=== PATIENT | male | born 1960 | race African-American/Black ===

== ENCOUNTER 2016-09-05 21:19 | Inpatient (IN) | payer MEDICAID ==
[~2016-09-05] VITALS: Ht 165.1 cm; Wt 71.0 kg
[~2016-09-05 21:19] MED LIST: ESCI5TAB PO; QUET200T PO
[2016-09-05 22:10] VITALS: BP 130/70
[2016-09-05] MEDS ORDERED: ZOLPIDEM TARTRATE 10 MG TABLET PO PRN (22:15)
[2016-09-05] MEDS ORDERED: LEVO250 PO (22:30)
[2016-09-05] MEDS ORDERED: INFLUENZA VIRUS VACCINE QVS 2016-17 (3YR+)/PF 60 MCG/0.5 ML SYRINGE IM ONE (23:15)
[2016-09-05] MEDS ORDERED: PNEUMOCOCCAL VACCINE POLYVALENT 0.5 ML VIAL [PPSV23] IM ONE (23:15)
[2016-09-06 00:40] VITALS: BP 107/75
[2016-09-06 07:22] LABS: BASOPHILS % (AUTO) 0.2 % (0.0-2.0); EOSINOPHILS % (AUTO) 5.9 % (1.0-6.0); HEMATOCRIT 41.5 % (41-53); HEMOGLOBIN 13.7 g/dL (13.5-17.5); LYMPHOCYTES # (AUTO) 1.4 K/uL (1.0-4.8); LYMPHOCYTES % (AUTO) 17.5 % (22.0-44.0); MEAN CORPUSCULAR HEMOGLOBIN 29.8 pg (26.0-34.0); MEAN CORPUSCULAR VOLUME 90 fL (80-100); MONOCYTES # (AUTO) 0.4 K/uL (0.1-1.0); MONOCYTES % (AUTO) 5.5 % (2.0-9.0); NEUTROPHILS # (AUTO) 5.5 K/uL (1.8-7.7); NEUTROPHILS % (AUTO) 70.9 % (40.0-70.0); PLATELET COUNT (AUTO) 368 K/uL (150-450); RED CELL DISTRIBUTION WIDTH 14.4 % (11.5-14.5); WHITE BLOOD COUNT (AUTO) 7.8 K/uL (4.5-11.0)
[2016-09-06 07:41] LABS: ALANINE AMINOTRANSFERASE 26 U/L (12-78); ALBUMIN 2.7 g/dL (3.4-5.0); ANION GAP 6 mmol/L (8-16); ASPARTATE AMINOTRANSFERASE 20 U/L (15-37); BILIRUBIN,TOTAL 0.2 mg/dL (0.1-1.0); CALCIUM, TOTAL 8.8 mg/dL (8.8-10.5); CARBON DIOXIDE 29 mmol/L (22-29); CHLORIDE 106 mmol/L (98-107); CREATININE 1.12 mg/dL (0.60-1.30); GLOMERULAR FILTR. RATE CALC > 60 mL/min (>60); POTASSIUM 4.9 mmol/L (3.5-5.1); SODIUM SERUM 141 mmol/L (136-145); TOTAL PROTEIN, SERUM 6.4 g/dL (6.4-8.2); UREA NITROGEN, BLOOD 21 mg/dL (7-18)
[2016-09-06] MEDS: FLUoxetine HCL 20 MG CAPSULE PO SCH (09:00)
[2016-09-06] MEDS: QUEtiapine FUMARATE 200 MG TABLET PO SCH ×2 (09:30→21:21)
[2016-09-06 11:26] VITALS: BP 121/78
[2016-09-06 16:00] VITALS: BP 136/90
[2016-09-06] MEDS: LORazepam 2 MG TABLET PO PRN (16:28)
[2016-09-06] MEDS: TIOTROPIUM BROMIDE 18 MCG/INH HANDIHALER [5] IH SCH (23:00)
[2016-09-06] MEDS: LEVOFLOXACIN 250 MG TABLET PO SCH (23:00)
[2016-09-07 05:27] VITALS: BP 134/84
[2016-09-07 08:51] VITALS: BP 143/89
[2016-09-07] MEDS: QUEtiapine FUMARATE 200 MG TABLET PO SCH ×2 (09:16→20:22)
[2016-09-07] MEDS: FLUoxetine HCL 20 MG CAPSULE PO SCH (09:16)
[2016-09-07] MEDS: LEVOFLOXACIN 250 MG TABLET PO SCH (09:17)
[2016-09-07] MEDS: TIOTROPIUM BROMIDE 18 MCG/INH HANDIHALER [5] IH SCH (09:17)
[2016-09-07 16:49] VITALS: BP 121/74
[2016-09-08 05:10] VITALS: BP 137/54
[2016-09-08 09:21] VITALS: BP 125/77
[2016-09-08] MEDS: TIOTROPIUM BROMIDE 18 MCG/INH HANDIHALER [5] IH SCH (09:24)
[2016-09-08] MEDS: QUEtiapine FUMARATE 200 MG TABLET PO SCH ×2 (09:27→21:06)
[2016-09-08] MEDS: FLUoxetine HCL 20 MG CAPSULE PO SCH (09:27)
[2016-09-08] MEDS: LEVOFLOXACIN 250 MG TABLET PO SCH (09:27)
[2016-09-08] MEDS: LORazepam 2 MG TABLET PO PRN ×2 (09:28→23:09)
[2016-09-08 18:15] VITALS: BP 125/78
[2016-09-09 05:35] VITALS: BP 110/66
[2016-09-09 09:24] VITALS: BP 105/70
[2016-09-09] MEDS: FLUoxetine HCL 20 MG CAPSULE PO SCH (09:46)
[2016-09-09] MEDS: QUEtiapine FUMARATE 200 MG TABLET PO SCH (09:46)
[2016-09-09] MEDS: LEVOFLOXACIN 250 MG TABLET PO SCH (09:46)
[2016-09-09] MEDS: TIOTROPIUM BROMIDE 18 MCG/INH HANDIHALER [5] IH SCH (09:46)
[2016-09-09] MEDS: LORazepam 2 MG TABLET PO PRN (09:46)
[2016-09-09] MEDS ORDERED: FLUO-191 PO (10:22)
[2016-09-09] MEDS ORDERED: TIOT185 IH (10:24)
== END 2016-09-09 14:40 | disposition home or self-care (01) | DRG 750 ==
LOC: UNDOADMIN 22:32 → 3EI 22:32 → B3A 22:32 → EDSTATUS 22:55
PROVIDERS: ADMIT Psychiatry & Neurology Psychiatry; ATTEND Psychiatry & Neurology Psychiatry
DX: F25.9 Schizoaffective disorder, unspecified (principal); J18.9 Pneumonia, unspecified organism; R45.851 Suicidal ideations; F20.0 Paranoid schizophrenia; E78.5 Hyperlipidemia, unspecified; I10 Essential (primary) hypertension; F14.90 Cocaine use, unspecified, uncomplicated; G47.00 Insomnia, unspecified; M54.5 Low back pain; F32.9 Major depressive disorder, single episode, unspecified; Z80.1 Family history of malignant neoplasm of trachea, bronchus and lung
CPT/HCPCS: 71020; 87081

== ENCOUNTER 2016-09-12 02:52 | Inpatient (IN) | payer MEDICAID ==
[~2016-09-12] VITALS: Ht 165.1 cm; Wt 71.7 kg
[~2016-09-12 02:52] MED LIST changes: -ESCI5TAB PO; +FLUO-191 PO; +LEVO250 PO; +TIOT185 IH
[2016-09-12] MEDS ORDERED: ZOLPIDEM TARTRATE 10 MG TABLET PO PRN (04:30)
[2016-09-12] MEDS ORDERED: INFLUENZA VIRUS VACCINE QVS 2016-17 (3YR+)/PF 60 MCG/0.5 ML SYRINGE IM ONE (04:45)
[2016-09-12] MEDS ORDERED: HYDR-309 PO (04:54)
[2016-09-12] MEDS ORDERED: QUET200T PO (04:54)
[2016-09-12 05:39] VITALS: BP 118/78
[2016-09-12] MEDS ORDERED: PNEUMOCOCCAL VACCINE POLYVALENT 0.5 ML VIAL [PPSV23] IM ONE (06:00)
[2016-09-12 08:25] VITALS: BP 122/82
[2016-09-12] MEDS ORDERED: CloNIDine HCL 0.1 MG TABLET PO PRN (11:30)
[2016-09-12] MEDS ORDERED: LOPERAMIDE HCL 2 MG CAPSULE PO PRN (11:30)
[2016-09-12] MEDS ORDERED: ALBUTEROL SULFATE HFA 90 MCG/PUFF 8 GM INHALER IH PRN (11:30)
[2016-09-12] MEDS ORDERED: IBUPROFEN 600 MG TABLET PO PRN (11:30)
[2016-09-12] MEDS ORDERED: MAGNESIUM HYDROXIDE SUSPENSION 30 ML UDCUP PO PRN (11:30)
[2016-09-12] MEDS ORDERED: BACITRACIN 28.4 GM OINTMENT TP PRN (11:30)
[2016-09-12] MEDS ORDERED: BENZOCAINE/MENTHOL LOZENGE MM PRN (11:30)
[2016-09-12] MEDS ORDERED: MAG HYDROX/AL HYDROX/SIMETH ES 30 ML SUSPENSION UDCUP PO PRN (11:30)
[2016-09-12] MEDS ORDERED: PETROLATUM,WHITE 71 GM JELLY TP PRN (11:30)
[2016-09-12] MEDS ORDERED: ONDANSETRON HCL 4 MG TABLET PO PRN (11:30)
[2016-09-12] MEDS ORDERED: ACETAMINOPHEN 325 MG TABLET PO PRN (11:30)
[2016-09-12] MEDS ORDERED: GuaiFENesin/D-METHORPHAN/PHENYLEPH 5 ML LIQUID ORAL.SYG PO PRN (11:30)
[2016-09-12] MEDS: NICOTINE 14 MG/24 HOUR PATCH TD SCH (12:44)
[2016-09-12] MEDS: FLUoxetine HCL 20 MG CAPSULE PO SCH (12:44)
[2016-09-12] MEDS: LEVOFLOXACIN 250 MG TABLET PO SCH (15:49)
[2016-09-12] MEDS: TIOTROPIUM BROMIDE 18 MCG/INH HANDIHALER [5] IH SCH (15:49)
[2016-09-12 16:14] VITALS: BP 126/79
[2016-09-12] MEDS: QUEtiapine FUMARATE 200 MG TABLET PO SCH (20:10)
[2016-09-13 06:28] VITALS: BP 143/87
[2016-09-13] MEDS: LORazepam 2 MG TABLET PO PRN ×2 (06:31→17:05)
[2016-09-13 07:40] LABS: BASOPHILS % (AUTO) 2.4 % (0.0-2.0); EOSINOPHILS % (AUTO) 6.5 % (1.0-6.0); HEMOGLOBIN 12.9 g/dL (13.5-17.5); LYMPHOCYTES # (AUTO) 1.2 K/uL (1.0-4.8); LYMPHOCYTES % (AUTO) 28.2 % (22.0-44.0); MEAN CORPUSCULAR HEMOGLOBIN 29.5 pg (26.0-34.0); MEAN CORPUSCULAR VOLUME 90 fL (80-100); MONOCYTES # (AUTO) 0.5 K/uL (0.1-1.0); MONOCYTES % (AUTO) 11.7 % (2.0-9.0); NEUTROPHILS # (AUTO) 2.1 K/uL (1.8-7.7); NEUTROPHILS % (AUTO) 51.2 % (40.0-70.0); PLATELET COUNT (AUTO) 385 K/uL (150-450); RED BLOOD CELL COUNT(AUTO) 4.36 MIL/uL (4.50-5.90); RED CELL DISTRIBUTION WIDTH 14.2 % (11.5-14.5); WHITE BLOOD COUNT (AUTO) 4.2 K/uL (4.5-11.0)
[2016-09-13 08:09] LABS: HEMOGLOBIN A1C 5.8 % (4.5-6.2)
[2016-09-13 08:12] LABS: ALANINE AMINOTRANSFERASE 30 U/L (12-78); ALBUMIN 2.8 g/dL (3.4-5.0); ANION GAP 8 mmol/L (8-16); ASPARTATE AMINOTRANSFERASE 21 U/L (15-37); BILIRUBIN,TOTAL 0.2 mg/dL (0.1-1.0); CALCIUM, TOTAL 8.7 mg/dL (8.8-10.5); CARBON DIOXIDE 29 mmol/L (22-29); CHLORIDE 103 mmol/L (98-107); CREATININE 1.22 mg/dL (0.60-1.30); GLOMERULAR FILTR. RATE CALC > 60 mL/min (>60); POTASSIUM 4.7 mmol/L (3.5-5.1); SODIUM SERUM 140 mmol/L (136-145); THYROID STIMULATING HORMONE 1.41 uIU/mL (0.36-3.74); TOTAL PROTEIN, SERUM 6.1 g/dL (6.4-8.2); UREA NITROGEN, BLOOD 19 mg/dL (7-18)
[2016-09-13 08:29] VITALS: BP 132/64
[2016-09-13] MEDS: TIOTROPIUM BROMIDE 18 MCG/INH HANDIHALER [5] IH SCH (08:47)
[2016-09-13] MEDS: FLUoxetine HCL 20 MG CAPSULE PO SCH (08:48)
[2016-09-13] MEDS: NICOTINE 14 MG/24 HOUR PATCH TD SCH (08:48)
[2016-09-13] MEDS: QUEtiapine FUMARATE 200 MG TABLET PO SCH ×2 (08:48→20:50)
[2016-09-13] MEDS: LEVOFLOXACIN 250 MG TABLET PO SCH (08:48)
[2016-09-13 16:04] VITALS: BP 105/60
[2016-09-14 07:15] VITALS: BP 102/61
[2016-09-14 08:41] VITALS: BP 117/71
[2016-09-14] MEDS: LORazepam 2 MG TABLET PO PRN (09:32)
[2016-09-14] MEDS: TIOTROPIUM BROMIDE 18 MCG/INH HANDIHALER [5] IH SCH (09:33)
[2016-09-14] MEDS: NICOTINE 14 MG/24 HOUR PATCH TD SCH (09:33)
[2016-09-14] MEDS: LEVOFLOXACIN 250 MG TABLET PO SCH (09:33)
[2016-09-14] MEDS: FLUoxetine HCL 20 MG CAPSULE PO SCH (09:34)
[2016-09-14] MEDS: QUEtiapine FUMARATE 200 MG TABLET PO SCH ×2 (09:34→20:47)
[2016-09-14 16:14] VITALS: BP 109/71
[2016-09-15 04:14] VITALS: BP 104/67
[2016-09-15 08:32] VITALS: BP 124/85
[2016-09-15] MEDS: LEVOFLOXACIN 250 MG TABLET PO SCH (08:37)
[2016-09-15] MEDS: TIOTROPIUM BROMIDE 18 MCG/INH HANDIHALER [5] IH SCH (08:37)
[2016-09-15] MEDS: FLUoxetine HCL 20 MG CAPSULE PO SCH (08:38)
[2016-09-15] MEDS: QUEtiapine FUMARATE 200 MG TABLET PO SCH ×2 (08:38→20:24)
[2016-09-15] MEDS: NICOTINE 14 MG/24 HOUR PATCH TD SCH (08:38)
[2016-09-15 16:08] VITALS: BP 108/71
[2016-09-16 00:23] VITALS: BP 105/68
[2016-09-16 08:05] VITALS: BP 101/61
[2016-09-16] MEDS ORDERED: NICOTINE 21 MG/24 HOUR PATCH TD SCH (09:00)
[2016-09-16] MEDS: TIOTROPIUM BROMIDE 18 MCG/INH HANDIHALER [5] IH SCH (10:01)
[2016-09-16] MEDS: LEVOFLOXACIN 250 MG TABLET PO SCH (10:01)
[2016-09-16] MEDS: FLUoxetine HCL 20 MG CAPSULE PO SCH (10:02)
[2016-09-16] MEDS: QUEtiapine FUMARATE 200 MG TABLET PO SCH (10:02)
[2016-09-16] MEDS ORDERED: NICO21T TD (10:36)
== END 2016-09-16 12:30 | disposition home or self-care (01) | DRG 750 ==
LOC: B2S 04:26 → EDSTATUS 04:29
PROVIDERS: ADMIT Psychiatry & Neurology Psychiatry; ATTEND Psychiatry & Neurology Psychiatry
PROC: 3E0234Z Introduction of Serum, Toxoid and Vaccine into Muscle, Percutaneous Approach (ICD-10-PCS; principal; 2016-09-12)
DX: F25.9 Schizoaffective disorder, unspecified (principal); R45.851 Suicidal ideations; E55.9 Vitamin D deficiency, unspecified; I10 Essential (primary) hypertension; J44.9 Chronic obstructive pulmonary disease, unspecified; E78.5 Hyperlipidemia, unspecified; G56.00 Carpal tunnel syndrome, unspecified upper limb; M54.5 Low back pain; F17.200 Nicotine dependence, unspecified, uncomplicated; F14.90 Cocaine use, unspecified, uncomplicated; Z23 Encounter for immunization; Z88.1 Allergy status to other antibiotic agents; Z71.51 Drug abuse counseling and surveillance of drug abuser; Z71.6 Tobacco abuse counseling; Z80.1 Family history of malignant neoplasm of trachea, bronchus and lung
CPT/HCPCS: 83036; 84439; 84443; 87081; 90471

== ENCOUNTER 2016-10-16 21:30 | Inpatient (IN) | payer MEDICAID ==
[~2016-10-16] VITALS: Ht 170.2 cm; Wt 81.7 kg
[~2016-10-16 21:30] MED LIST changes: +NICO21T TD
[2016-10-16 22:00] VITALS: BP 121/81
[2016-10-16] MEDS ORDERED: HALOPERIDOL 5 MG TABLET PO PRN (22:00)
[2016-10-16] MEDS ORDERED: ZOLPIDEM TARTRATE 10 MG TABLET PO PRN (22:00)
[2016-10-16] MEDS ORDERED: -PHARMACY VACCINE NOTE- MISC ONE ×2 (22:15)
[2016-10-17 00:02] VITALS: BP 118/79
[2016-10-17 08:08] VITALS: BP 128/67
[2016-10-17 08:23] LABS: BASOPHILS % (AUTO) 0.4 % (0.0-2.0); EOSINOPHILS % (AUTO) 6.4 % (1.0-6.0); HEMATOCRIT 39.4 % (41-53); HEMOGLOBIN 12.9 g/dL (13.5-17.5); LYMPHOCYTES # (AUTO) 1.8 K/uL (1.0-4.8); LYMPHOCYTES % (AUTO) 24.8 % (22.0-44.0); MEAN CORPUSCULAR HGB CONC 32.6 G/dL (31.0-37.0); MEAN CORPUSCULAR VOLUME 89 fL (80-100); MONOCYTES # (AUTO) 0.7 K/uL (0.1-1.0); MONOCYTES % (AUTO) 10.2 % (2.0-9.0); NEUTROPHILS # (AUTO) 4.2 K/uL (1.8-7.7); NEUTROPHILS % (AUTO) 58.2 % (40.0-70.0); PLATELET COUNT (AUTO) 288 K/uL (150-450); RED BLOOD CELL COUNT(AUTO) 4.43 MIL/uL (4.50-5.90); WHITE BLOOD COUNT (AUTO) 7.2 K/uL (4.5-11.0)
[2016-10-17 08:36] LABS: HEMOGLOBIN A1C 6.4 % (4.5-6.2)
[2016-10-17 08:58] LABS: ALANINE AMINOTRANSFERASE 29 U/L (12-78); ALBUMIN 3.7 g/dL (3.4-5.0); ANION GAP 9 mmol/L (8-16); ASPARTATE AMINOTRANSFERASE 27 U/L (15-37); BILIRUBIN,TOTAL 0.5 mg/dL (0.1-1.0); CALCIUM, TOTAL 8.7 mg/dL (8.8-10.5); CARBON DIOXIDE 29 mmol/L (22-29); CHLORIDE 101 mmol/L (98-107); CHOL/HDL RATIO 9.3 (4.2-7.3); CREATININE 1.16 mg/dL (0.60-1.30); GLOMERULAR FILTR. RATE CALC > 60 mL/min (>60); POTASSIUM 4.8 mmol/L (3.5-5.1); SODIUM SERUM 139 mmol/L (136-145); THYROID STIMULATING HORMONE 2.28 uIU/mL (0.36-3.74); UREA NITROGEN, BLOOD 19 mg/dL (7-18)
[2016-10-17] MEDS ORDERED: ONDANSETRON HCL 4 MG TABLET PO PRN (15:00)
[2016-10-17] MEDS ORDERED: LOPERAMIDE HCL 2 MG CAPSULE PO PRN (15:00)
[2016-10-17] MEDS ORDERED: ACETAMINOPHEN 325 MG TABLET PO PRN (15:00)
[2016-10-17] MEDS ORDERED: IBUPROFEN 600 MG TABLET PO PRN (15:00)
[2016-10-17] MEDS ORDERED: PETROLATUM,WHITE 71 GM JELLY TP PRN (15:00)
[2016-10-17] MEDS ORDERED: MAG HYDROX/AL HYDROX/SIMETH ES 30 ML SUSPENSION UDCUP PO PRN (15:00)
[2016-10-17] MEDS ORDERED: MAGNESIUM HYDROXIDE SUSPENSION 30 ML UDCUP PO PRN (15:00)
[2016-10-17] MEDS ORDERED: ALBUTEROL SULFATE HFA 90 MCG/PUFF 8 GM INHALER IH PRN (15:00)
[2016-10-17] MEDS ORDERED: CloNIDine HCL 0.1 MG TABLET PO PRN (15:00)
[2016-10-17] MEDS ORDERED: BACITRACIN 28.4 GM OINTMENT TP PRN (15:00)
[2016-10-17] MEDS ORDERED: BENZOCAINE/MENTHOL LOZENGE MM PRN (15:00)
[2016-10-17 16:00] VITALS: BP 134/82
[2016-10-17] MEDS: QUEtiapine FUMARATE 300 MG TABLET PO SCH (20:47)
[2016-10-18 06:43] VITALS: BP 123/65
[2016-10-18 08:20] VITALS: BP 124/68
[2016-10-18] MEDS: FISH OIL/OMEGA-3 FATTY ACIDS 500 MG CAPSULE PO SCH (08:42)
[2016-10-18] MEDS: CHOLECALCIFEROL (VIT D3) 1,000 UNITS TABLET PO SCH (08:42)
[2016-10-18] MEDS: ESCITALOPRAM OXALATE 20 MG TABLET PO SCH (08:42)
[2016-10-18] MEDS: QUEtiapine FUMARATE 200 MG TABLET PO SCH (08:42)
[2016-10-18] MEDS: NICOTINE 21 MG/24 HOUR PATCH TD SCH (08:43)
[2016-10-18 16:00] VITALS: BP 138/78
[2016-10-18] MEDS: QUEtiapine FUMARATE 300 MG TABLET PO SCH (20:15)
[2016-10-19 06:03] VITALS: BP 132/72
[2016-10-19 08:30] VITALS: BP 125/62
[2016-10-19] MEDS: CHOLECALCIFEROL (VIT D3) 1,000 UNITS TABLET PO SCH (09:30)
[2016-10-19] MEDS: ESCITALOPRAM OXALATE 20 MG TABLET PO SCH (09:30)
[2016-10-19] MEDS: NICOTINE 21 MG/24 HOUR PATCH TD SCH (09:31)
[2016-10-19] MEDS: QUEtiapine FUMARATE 200 MG TABLET PO SCH (09:31)
[2016-10-19] MEDS: FISH OIL/OMEGA-3 FATTY ACIDS 500 MG CAPSULE PO SCH (09:31)
[2016-10-19] MEDS: LORazepam 2 MG TABLET PO PRN ×2 (10:12→17:01)
[2016-10-19 16:13] VITALS: BP 130/76
[2016-10-19] MEDS: QUEtiapine FUMARATE 300 MG TABLET PO SCH (21:29)
[2016-10-20 06:31] VITALS: BP 136/75
[2016-10-20] MEDS: FISH OIL/OMEGA-3 FATTY ACIDS 500 MG CAPSULE PO SCH (08:57)
[2016-10-20] MEDS: CHOLECALCIFEROL (VIT D3) 1,000 UNITS TABLET PO SCH (08:57)
[2016-10-20] MEDS: NICOTINE 21 MG/24 HOUR PATCH TD SCH (08:57)
[2016-10-20] MEDS: QUEtiapine FUMARATE 200 MG TABLET PO SCH (08:57)
[2016-10-20] MEDS: ESCITALOPRAM OXALATE 20 MG TABLET PO SCH (08:58)
[2016-10-20 09:38] VITALS: BP 145/85
[2016-10-20 16:30] VITALS: BP 135/82
[2016-10-20] MEDS: QUEtiapine FUMARATE 300 MG TABLET PO SCH (21:58)
[2016-10-21 03:04] VITALS: BP 132/78
[2016-10-21] MEDS: FISH OIL/OMEGA-3 FATTY ACIDS 500 MG CAPSULE PO SCH (08:30)
[2016-10-21] MEDS: CHOLECALCIFEROL (VIT D3) 1,000 UNITS TABLET PO SCH (08:30)
[2016-10-21] MEDS: QUEtiapine FUMARATE 200 MG TABLET PO SCH (08:30)
[2016-10-21] MEDS: ESCITALOPRAM OXALATE 20 MG TABLET PO SCH (08:30)
[2016-10-21] MEDS: NICOTINE 21 MG/24 HOUR PATCH TD SCH (08:33)
[2016-10-21] MEDS ORDERED: QUET300T2 PO (08:48)
[2016-10-21] MEDS ORDERED: FISH1 PO (08:48)
[2016-10-21] MEDS ORDERED: VITAD1000 PO (08:48)
[2016-10-21] MEDS ORDERED: ESCI20TA PO (08:48)
[2016-10-21 08:54] VITALS: BP 149/69
== END 2016-10-21 11:35 | disposition home or self-care (01) | DRG 750 ==
LOC: B3A 21:49 → EDSTATUS 21:51
PROVIDERS: ADMIT Psychiatry & Neurology Psychiatry; ATTEND Psychiatry & Neurology Psychiatry
DX: F25.0 Schizoaffective disorder, bipolar type (principal); R45.851 Suicidal ideations; E55.9 Vitamin D deficiency, unspecified; I10 Essential (primary) hypertension; J44.9 Chronic obstructive pulmonary disease, unspecified; F41.9 Anxiety disorder, unspecified; J45.909 Unspecified asthma, uncomplicated; G56.00 Carpal tunnel syndrome, unspecified upper limb; E78.5 Hyperlipidemia, unspecified; R73.03 Prediabetes; F17.210 Nicotine dependence, cigarettes, uncomplicated; Z79.899 Other long term (current) drug therapy; Z59.0 Homelessness; Z88.8 Allergy status to other drugs, medicaments and biological substances; Z91.5 Personal history of self-harm; Z87.01 Personal history of pneumonia (recurrent); Z80.1 Family history of malignant neoplasm of trachea, bronchus and lung
CPT/HCPCS: 83036; 84439; 84443

== ENCOUNTER 2017-11-20 17:07 | Inpatient (IN) | payer MEDICARE, MEDICAID ==
[~2017-11-20] VITALS: Ht 165.1 cm; Wt 82.4 kg
[~2017-11-20 17:07] MED LIST changes: +ESCI20TA PO; +FISH1 PO; -FLUO-191 PO; -LEVO250 PO; -NICO21T TD; +QUET300T2 PO; -TIOT185 IH; +VITAD1000 PO
[2017-11-20 17:25] VITALS: BP 136/86
[2017-11-20] MEDS ORDERED: LORazepam 2 MG TABLET PO PRN (17:45)
[2017-11-20] MEDS ORDERED: HALOPERIDOL 5 MG TABLET PO PRN (17:45)
[2017-11-20] MEDS ORDERED: ZOLPIDEM TARTRATE 10 MG TABLET PO PRN (17:45)
[2017-11-20 18:40] VITALS: BP 125/84
[2017-11-20] MEDS: NICOTINE 21 MG/24 HOUR PATCH TD SCH (20:26)
[2017-11-20] MEDS: QUEtiapine FUMARATE 300 MG TABLET PO SCH (20:26)
[2017-11-21] MEDS ORDERED: ONDANSETRON HCL 4 MG TABLET PO PRN (06:45)
[2017-11-21] MEDS ORDERED: IBUPROFEN 600 MG TABLET PO PRN (06:45)
[2017-11-21] MEDS ORDERED: CloNIDine HCL 0.1 MG TABLET PO PRN (06:45)
[2017-11-21] MEDS ORDERED: MAGNESIUM HYDROXIDE SUSPENSION 30 ML UDCUP PO PRN (06:45)
[2017-11-21] MEDS ORDERED: ACETAMINOPHEN 325 MG TABLET PO PRN (06:45)
[2017-11-21] MEDS ORDERED: MAG HYDROX/AL HYDROX/SIMETH ES 30 ML SUSPENSION UDCUP PO PRN (06:45)
[2017-11-21] MEDS ORDERED: BACITRACIN 28.4 GM OINTMENT TP PRN (06:45)
[2017-11-21] MEDS ORDERED: ALBUTEROL SULFATE HFA 90 MCG/PUFF 8 GM INHALER IH PRN (06:45)
[2017-11-21] MEDS ORDERED: LOPERAMIDE HCL 2 MG CAPSULE PO PRN (06:45)
[2017-11-21] MEDS ORDERED: PETROLATUM,WHITE 71 GM JELLY TP PRN (06:45)
[2017-11-21] MEDS ORDERED: BENZOCAINE/MENTHOL LOZENGE MM PRN (06:45)
[2017-11-21 06:52] VITALS: BP 117/81
[2017-11-21 07:28] LABS: BASOPHILS % (AUTO) 0.5 % (0.0-2.0); EOSINOPHILS % (AUTO) 7.4 % (1.0-6.0); HEMOGLOBIN 15.9 g/dL (13.5-17.5); LYMPHOCYTES # (AUTO) 1.6 K/uL (1.0-4.8); LYMPHOCYTES % (AUTO) 29.5 % (22.0-44.0); MEAN CORPUSCULAR HEMOGLOBIN 29.3 pg (26.0-34.0); MEAN CORPUSCULAR HGB CONC 33.9 G/dL (31.0-37.0); MEAN CORPUSCULAR VOLUME 87 fL (80-100); MONOCYTES # (AUTO) 0.5 K/uL (0.1-1.0); MONOCYTES % (AUTO) 9.7 % (2.0-9.0); NEUTROPHILS # (AUTO) 2.8 K/uL (1.8-7.7); NEUTROPHILS % (AUTO) 52.9 % (40.0-70.0); PLATELET COUNT (AUTO) 275 K/uL (150-450); RED BLOOD CELL COUNT(AUTO) 5.42 MIL/uL (4.50-5.90)
[2017-11-21 07:53] LABS: HEMOGLOBIN A1C 6.3 % (4.5-6.2)
[2017-11-21 08:06] LABS: ALANINE AMINOTRANSFERASE 20 U/L (12-78); ALBUMIN 3.5 g/dL (3.4-5.0); ALKALINE PHOSPHATASE 49 U/L (46-116); ANION GAP 7 mmol/L (8-16); ASPARTATE AMINOTRANSFERASE 20 U/L (15-37); BILIRUBIN,TOTAL 0.3 mg/dL (0.1-1.0); CALCIUM, TOTAL 9.1 mg/dL (8.8-10.5); CARBON DIOXIDE 29 mmol/L (22-29); CHLORIDE 106 mmol/L (98-107); CHOL/HDL RATIO 6.9 (4.2-7.3); CHOLESTEROL 206 mg/dL (131-200); CREATININE 1.37 mg/dL (0.60-1.30); FREE T4 (FREE THYROXINE) 0.65 ng/dL (0.76-1.46); GLOMERULAR FILTR. RATE CALC > 60 mL/min (>60); GLUCOSE,RANDOM 102 mg/dL (70-110); HDL CHOLESTEROL 30 mg/dL (40-60); LDL CHOL (CALC.) 98 mg/dL (0-130); POTASSIUM 4.8 mmol/L (3.5-5.1); SODIUM SERUM 142 mmol/L (136-145); THYROID STIMULATING HORMONE 2.35 uIU/mL (0.36-3.74); TOTAL PROTEIN, SERUM 6.2 g/dL (6.4-8.2); TRIGLYCERIDES 392 mg/dL (15-150); UREA NITROGEN, BLOOD 16 mg/dL (7-18)
[2017-11-21 08:24] VITALS: BP 112/71
[2017-11-21] MEDS: ESCITALOPRAM OXALATE 20 MG TABLET PO SCH (08:49)
[2017-11-21] MEDS: QUEtiapine FUMARATE 200 MG TABLET PO SCH (08:49)
[2017-11-21] MEDS: OMEGA-3/DHA/EPA/FISH OIL 1,000 MG CAPSULE PO SCH (08:49)
[2017-11-21] MEDS: NICOTINE 21 MG/24 HOUR PATCH TD SCH (08:50)
[2017-11-21 16:19] VITALS: BP 123/78
[2017-11-21] MEDS: QUEtiapine FUMARATE 300 MG TABLET PO SCH (20:04)
[2017-11-21] MEDS ORDERED: SIMVASTATIN 20 MG TABLET PO SCH (21:00)
[2017-11-22 08:30] VITALS: BP 100/70
[2017-11-22] MEDS: NICOTINE 21 MG/24 HOUR PATCH TD SCH (09:25)
[2017-11-22] MEDS: QUEtiapine FUMARATE 200 MG TABLET PO SCH (09:25)
[2017-11-22] MEDS: OMEGA-3/DHA/EPA/FISH OIL 1,000 MG CAPSULE PO SCH (09:25)
[2017-11-22] MEDS: ESCITALOPRAM OXALATE 20 MG TABLET PO SCH (09:25)
[2017-11-22] MEDS: DENTURE ADHESIVE 68 GM CREAM DT PRN (16:03)
[2017-11-22 16:17] VITALS: BP 105/73
[2017-11-22] MEDS: QUEtiapine FUMARATE 300 MG TABLET PO SCH (20:31)
[2017-11-22] MEDS: SIMVASTATIN 20 MG TABLET PO SCH (20:32)
[2017-11-23 08:25] VITALS: BP 106/65
[2017-11-23] MEDS: NICOTINE 21 MG/24 HOUR PATCH TD SCH (10:13)
[2017-11-23] MEDS: QUEtiapine FUMARATE 200 MG TABLET PO SCH (10:13)
[2017-11-23] MEDS: ESCITALOPRAM OXALATE 20 MG TABLET PO SCH (10:13)
[2017-11-23] MEDS: OMEGA-3/DHA/EPA/FISH OIL 1,000 MG CAPSULE PO SCH (10:13)
[2017-11-23 16:03] VITALS: BP 108/70
[2017-11-23] MEDS ORDERED: BENZOCAINE/MENTHOL LOZENGE MM PRN (18:15)
[2017-11-23] MEDS: QUEtiapine FUMARATE 300 MG TABLET PO SCH (20:24)
[2017-11-23] MEDS: SIMVASTATIN 20 MG TABLET PO SCH (20:24)
[2017-11-24 00:23] VITALS: BP 109/72
[2017-11-24 08:29] VITALS: BP 107/77
[2017-11-24] MEDS: QUEtiapine FUMARATE 200 MG TABLET PO SCH (09:00)
[2017-11-24] MEDS: OMEGA-3/DHA/EPA/FISH OIL 1,000 MG CAPSULE PO SCH (09:00)
[2017-11-24] MEDS: NICOTINE 21 MG/24 HOUR PATCH TD SCH (09:00)
[2017-11-24] MEDS: ESCITALOPRAM OXALATE 20 MG TABLET PO SCH (09:00)
[2017-11-24 16:15] VITALS: BP 111/72
[2017-11-24] MEDS: QUEtiapine FUMARATE 300 MG TABLET PO SCH (20:27)
[2017-11-24] MEDS: SIMVASTATIN 20 MG TABLET PO SCH (20:27)
[2017-11-25 06:34] VITALS: BP 101/67
[2017-11-25 08:00] VITALS: BP 117/71
[2017-11-25] MEDS: QUEtiapine FUMARATE 200 MG TABLET PO SCH (08:55)
[2017-11-25] MEDS: NICOTINE 21 MG/24 HOUR PATCH TD SCH (08:55)
[2017-11-25] MEDS: OMEGA-3/DHA/EPA/FISH OIL 1,000 MG CAPSULE PO SCH (08:55)
[2017-11-25] MEDS: ESCITALOPRAM OXALATE 20 MG TABLET PO SCH (08:55)
[2017-11-25 16:11] VITALS: BP 118/69
[2017-11-25] MEDS: SIMVASTATIN 20 MG TABLET PO SCH (20:30)
[2017-11-25] MEDS: QUEtiapine FUMARATE 300 MG TABLET PO SCH (20:30)
[2017-11-26] VITALS: BP 121/82
[2017-11-26 08:14] VITALS: BP 116/64
[2017-11-26] MEDS: OMEGA-3/DHA/EPA/FISH OIL 1,000 MG CAPSULE PO SCH (08:23)
[2017-11-26] MEDS: QUEtiapine FUMARATE 200 MG TABLET PO SCH (08:23)
[2017-11-26] MEDS: ESCITALOPRAM OXALATE 20 MG TABLET PO SCH (08:23)
[2017-11-26] MEDS: NICOTINE 21 MG/24 HOUR PATCH TD SCH (08:24)
[2017-11-26 16:16] VITALS: BP 113/72
[2017-11-26] MEDS: SIMVASTATIN 20 MG TABLET PO SCH (20:10)
[2017-11-26] MEDS: QUEtiapine FUMARATE 300 MG TABLET PO SCH (20:10)
[2017-11-27 03:57] VITALS: BP 108/63
[2017-11-27 08:11] VITALS: BP 119/84
[2017-11-27] MEDS: ESCITALOPRAM OXALATE 20 MG TABLET PO SCH (09:00)
[2017-11-27] MEDS: OMEGA-3/DHA/EPA/FISH OIL 1,000 MG CAPSULE PO SCH (09:00)
[2017-11-27] MEDS: QUEtiapine FUMARATE 200 MG TABLET PO SCH (09:00)
[2017-11-27] MEDS: NICOTINE 21 MG/24 HOUR PATCH TD SCH (09:00)
[2017-11-27 16:14] VITALS: BP 138/83
[2017-11-27] MEDS: SIMVASTATIN 20 MG TABLET PO SCH (20:13)
[2017-11-27] MEDS: QUEtiapine FUMARATE 300 MG TABLET PO SCH (20:13)
[2017-11-28 00:56] VITALS: BP 128/72
[2017-11-28 08:29] VITALS: BP 110/77
[2017-11-28] MEDS: QUEtiapine FUMARATE 200 MG TABLET PO SCH (08:55)
[2017-11-28] MEDS: OMEGA-3/DHA/EPA/FISH OIL 1,000 MG CAPSULE PO SCH (08:55)
[2017-11-28] MEDS: ESCITALOPRAM OXALATE 20 MG TABLET PO SCH (08:55)
[2017-11-28] MEDS: NICOTINE 21 MG/24 HOUR PATCH TD SCH (08:55)
[2017-11-28 16:09] VITALS: BP 125/85
[2017-11-28] MEDS: QUEtiapine FUMARATE 300 MG TABLET PO SCH (20:01)
[2017-11-28] MEDS: SIMVASTATIN 20 MG TABLET PO SCH (20:01)
[2017-11-29 00:10] VITALS: BP 100/67
[2017-11-29] MEDS: NICOTINE 21 MG/24 HOUR PATCH TD SCH (08:30)
[2017-11-29] MEDS: QUEtiapine FUMARATE 200 MG TABLET PO SCH (08:30)
[2017-11-29] MEDS: OMEGA-3/DHA/EPA/FISH OIL 1,000 MG CAPSULE PO SCH (08:30)
[2017-11-29] MEDS: ESCITALOPRAM OXALATE 20 MG TABLET PO SCH (08:30)
[2017-11-29 08:59] VITALS: BP 119/88
[2017-11-29] MEDS: DENTURE ADHESIVE 68 GM CREAM DT PRN (16:05)
[2017-11-29 16:38] VITALS: BP 124/88
[2017-11-29] MEDS: QUEtiapine FUMARATE 300 MG TABLET PO SCH (20:03)
[2017-11-29] MEDS: SIMVASTATIN 20 MG TABLET PO SCH (20:03)
[2017-11-30 00:46] VITALS: BP 106/67
[2017-11-30 08:34] VITALS: BP 115/65
[2017-11-30] MEDS: OMEGA-3/DHA/EPA/FISH OIL 1,000 MG CAPSULE PO SCH (08:46)
[2017-11-30] MEDS: ESCITALOPRAM OXALATE 20 MG TABLET PO SCH (08:46)
[2017-11-30] MEDS: QUEtiapine FUMARATE 200 MG TABLET PO SCH (08:46)
[2017-11-30] MEDS: NICOTINE 21 MG/24 HOUR PATCH TD SCH (08:47)
[2017-11-30] MEDS ORDERED: QUET200T PO (09:13)
[2017-11-30] MEDS ORDERED: SIMV20TA2 PO (10:07)
[2017-11-30] MEDS ORDERED: SIMV-260 PO (10:08)
[2017-11-30] MEDS ORDERED: POTASSIUM CHLORIDE 20 MEQ ER TABLET PO ONE (12:00)
== END 2017-11-30 13:56 | disposition home or self-care (01) | DRG 885 ==
LOC: B2X 17:36
PROVIDERS: ADMIT Psychiatry & Neurology Psychiatry; ATTEND Psychiatry & Neurology Psychiatry
DX: F25.9 Schizoaffective disorder, unspecified (principal); Z59.0 Homelessness; E78.5 Hyperlipidemia, unspecified; F17.200 Nicotine dependence, unspecified, uncomplicated; F41.9 Anxiety disorder, unspecified; G47.00 Insomnia, unspecified; I10 Essential (primary) hypertension; J44.9 Chronic obstructive pulmonary disease, unspecified; Z80.1 Family history of malignant neoplasm of trachea, bronchus and lung; Z88.8 Allergy status to other drugs, medicaments and biological substances; Z71.6 Tobacco abuse counseling
CPT/HCPCS: 83036; 84439; 84443

== ENCOUNTER 2017-12-06 15:24 | Inpatient (IN) | payer MEDICARE, MEDICAID ==
[~2017-12-06] VITALS: Ht 165.1 cm; Wt 84.5 kg
[~2017-12-06 15:24] MED LIST changes: +SIMV-260 PO; +SIMV20TA2 PO; -VITAD1000 PO
[2017-12-06 16:06] VITALS: BP 137/88
[2017-12-06] MEDS ORDERED: ZOLPIDEM TARTRATE 10 MG TABLET PO PRN (16:45)
[2017-12-06] MEDS ORDERED: HALOPERIDOL 5 MG TABLET PO PRN (16:45)
[2017-12-06 17:28] VITALS: BP 138/89
[2017-12-06] MEDS ORDERED: CloNIDine HCL 0.1 MG TABLET PO PRN (20:45)
[2017-12-06] MEDS ORDERED: ALBUTEROL SULFATE HFA 90 MCG/PUFF 8 GM INHALER IH PRN (20:45)
[2017-12-06] MEDS: SIMVASTATIN 20 MG TABLET PO SCH (21:05)
[2017-12-06] MEDS: QUEtiapine FUMARATE 200 MG TABLET PO SCH (21:05)
[2017-12-07] MEDS ORDERED: -PHARMACY VACCINE NOTE- MISC ONE (01:45)
[2017-12-07 06:19] VITALS: BP 124/74
[2017-12-07 08:21] LABS: BASOPHILS % (AUTO) 0.7 % (0.0-2.0); EOSINOPHILS % (AUTO) 10.1 % (1.0-6.0); HEMATOCRIT 41.2 % (41-53); HEMOGLOBIN 14.4 g/dL (13.5-17.5); LYMPHOCYTES # (AUTO) 1.2 K/uL (1.0-4.8); MEAN CORPUSCULAR HEMOGLOBIN 29.5 pg (26.0-34.0); MEAN CORPUSCULAR HGB CONC 34.9 G/dL (31.0-37.0); MEAN CORPUSCULAR VOLUME 85 fL (80-100); MONOCYTES # (AUTO) 0.5 K/uL (0.1-1.0); MONOCYTES % (AUTO) 12.1 % (2.0-9.0); NEUTROPHILS % (AUTO) 49.1 % (40.0-70.0); PLATELET COUNT (AUTO) 270 K/uL (150-450); RED BLOOD CELL COUNT(AUTO) 4.87 MIL/uL (4.50-5.90); RED CELL DISTRIBUTION WIDTH 13.1 % (11.5-14.5)
[2017-12-07 08:24] VITALS: BP 111/68
[2017-12-07] MEDS: NICOTINE 21 MG/24 HOUR PATCH TD SCH (08:29)
[2017-12-07] MEDS: OMEGA-3/DHA/EPA/FISH OIL 1,000 MG CAPSULE PO SCH (08:29)
[2017-12-07] MEDS: ESCITALOPRAM OXALATE 10 MG TABLET PO SCH (08:29)
[2017-12-07 08:59] LABS: ALANINE AMINOTRANSFERASE 32 U/L (12-78); ALBUMIN 3.4 g/dL (3.4-5.0); ALKALINE PHOSPHATASE 65 U/L (46-116); ANION GAP 9 mmol/L (8-16); ASPARTATE AMINOTRANSFERASE 30 U/L (15-37); BILIRUBIN,TOTAL 0.4 mg/dL (0.1-1.0); CALCIUM, TOTAL 8.6 mg/dL (8.8-10.5); CARBON DIOXIDE 27 mmol/L (22-29); CHLORIDE 106 mmol/L (98-107); CHOL/HDL RATIO 4.9 (4.2-7.3); CHOLESTEROL 236 mg/dL (131-200); CREATININE 1.17 mg/dL (0.60-1.30); FREE T4 (FREE THYROXINE) 0.52 ng/dL (0.76-1.46); GLOMERULAR FILTR. RATE CALC > 60 mL/min (>60); GLUCOSE,RANDOM 95 mg/dL (70-110); HDL CHOLESTEROL 48 mg/dL (40-60); LDL CHOL (CALC.) 159 mg/dL (0-130); POTASSIUM 4.1 mmol/L (3.5-5.1); SODIUM SERUM 142 mmol/L (136-145); TOTAL PROTEIN, SERUM 6.9 g/dL (6.4-8.2); TRIGLYCERIDES 145 mg/dL (15-150); UREA NITROGEN, BLOOD 15 mg/dL (7-18)
[2017-12-07] MEDS ORDERED: MAGNESIUM HYDROXIDE SUSPENSION 30 ML UDCUP PO PRN (10:00)
[2017-12-07] MEDS ORDERED: ONDANSETRON HCL 4 MG TABLET PO PRN (10:00)
[2017-12-07 16:20] VITALS: BP 126/72
[2017-12-07] MEDS: SIMVASTATIN 20 MG TABLET PO SCH (20:36)
[2017-12-07] MEDS: QUEtiapine FUMARATE 200 MG TABLET PO SCH (20:36)
[2017-12-08 00:01] VITALS: BP 120/76
[2017-12-08] MEDS: ESCITALOPRAM OXALATE 10 MG TABLET PO SCH (08:10)
[2017-12-08] MEDS: OMEGA-3/DHA/EPA/FISH OIL 1,000 MG CAPSULE PO SCH (08:10)
[2017-12-08] MEDS: NICOTINE 21 MG/24 HOUR PATCH TD SCH (08:11)
[2017-12-08 08:27] VITALS: BP 126/83
[2017-12-08 16:13] VITALS: BP 138/85
[2017-12-08] MEDS: QUEtiapine FUMARATE 200 MG TABLET PO SCH (20:44)
[2017-12-08] MEDS: SIMVASTATIN 20 MG TABLET PO SCH (20:44)
[2017-12-09 06:12] VITALS: BP 131/76
[2017-12-09] MEDS: OMEGA-3/DHA/EPA/FISH OIL 1,000 MG CAPSULE PO SCH (08:11)
[2017-12-09] MEDS: NICOTINE 21 MG/24 HOUR PATCH TD SCH (08:11)
[2017-12-09] MEDS: ESCITALOPRAM OXALATE 10 MG TABLET PO SCH (08:11)
[2017-12-09 08:14] VITALS: BP 122/81
[2017-12-09 16:07] VITALS: BP 131/85
[2017-12-09] MEDS: SIMVASTATIN 20 MG TABLET PO SCH (20:42)
[2017-12-09] MEDS: QUEtiapine FUMARATE 200 MG TABLET PO SCH (20:43)
[2017-12-10 06:33] VITALS: BP 113/84
[2017-12-10] MEDS: ESCITALOPRAM OXALATE 10 MG TABLET PO SCH (08:05)
[2017-12-10] MEDS: OMEGA-3/DHA/EPA/FISH OIL 1,000 MG CAPSULE PO SCH (08:05)
[2017-12-10] MEDS: NICOTINE 21 MG/24 HOUR PATCH TD SCH (08:06)
[2017-12-10 10:12] VITALS: BP 137/77
[2017-12-10 16:15] VITALS: BP 121/84
[2017-12-10] MEDS: QUEtiapine FUMARATE 200 MG TABLET PO SCH (20:34)
[2017-12-10] MEDS: SIMVASTATIN 20 MG TABLET PO SCH (20:53)
[2017-12-11 07:02] VITALS: BP 123/89
[2017-12-11 08:00] VITALS: BP 130/78
[2017-12-11] MEDS: ESCITALOPRAM OXALATE 10 MG TABLET PO SCH (08:32)
[2017-12-11] MEDS: OMEGA-3/DHA/EPA/FISH OIL 1,000 MG CAPSULE PO SCH (08:32)
[2017-12-11] MEDS: NICOTINE 21 MG/24 HOUR PATCH TD SCH (08:32)
[2017-12-11 09:09] LABS: HEMATOCRIT 41.9 % (41-53); HEMOGLOBIN 14.5 g/dL (13.5-17.5); MEAN CORPUSCULAR HEMOGLOBIN 29.3 pg (26.0-34.0); MEAN CORPUSCULAR HGB CONC 34.6 G/dL (31.0-37.0); MEAN CORPUSCULAR VOLUME 85 fL (80-100); PLATELET COUNT (AUTO) 283 K/uL (150-450); RED BLOOD CELL COUNT(AUTO) 4.95 MIL/uL (4.50-5.90); RED CELL DISTRIBUTION WIDTH 13.4 % (11.5-14.5)
[2017-12-11 09:38] LABS: ANION GAP 8 mmol/L (8-16); CALCIUM, TOTAL 9.1 mg/dL (8.8-10.5); CARBON DIOXIDE 28 mmol/L (22-29); CHLORIDE 104 mmol/L (98-107); CREATININE 1.28 mg/dL (0.60-1.30); GLOMERULAR FILTR. RATE CALC > 60 mL/min (>60); GLUCOSE,RANDOM 91 mg/dL (70-110); PHOSPHORUS 4.1 mg/dL (2.5-4.9); POTASSIUM 4.3 mmol/L (3.5-5.1); SODIUM SERUM 140 mmol/L (136-145); UREA NITROGEN, BLOOD 15 mg/dL (7-18)
[2017-12-11 10:41] LABS: BAND NEUTROPHILS % (MANUAL) 1 % (0-5); EOSINOPHILS % (MANUAL) 9 % (1-6); LYMPHOCYTES % (MANUAL) 25 % (22-44); MONOCYTES % (MANUAL) 3 % (2-9); SEGMENTED NEUTROPHILS % 62 % (40-70)
[2017-12-11] MEDS: DENTURE ADHESIVE 68 GM CREAM DT PRN (13:58)
[2017-12-11 16:09] VITALS: BP 133/84
[2017-12-11] MEDS: QUEtiapine FUMARATE 200 MG TABLET PO SCH (20:37)
[2017-12-11] MEDS: SIMVASTATIN 20 MG TABLET PO SCH (20:37)
[2017-12-12 06:43] VITALS: BP 117/82
[2017-12-12 08:29] VITALS: BP 119/76
[2017-12-12] MEDS: ESCITALOPRAM OXALATE 10 MG TABLET PO SCH (09:08)
[2017-12-12] MEDS: OMEGA-3/DHA/EPA/FISH OIL 1,000 MG CAPSULE PO SCH (09:08)
[2017-12-12] MEDS: NICOTINE 21 MG/24 HOUR PATCH TD SCH (09:09)
[2017-12-12 16:23] VITALS: BP 127/89
[2017-12-12] MEDS: QUEtiapine FUMARATE 200 MG TABLET PO SCH (20:43)
[2017-12-12] MEDS: SIMVASTATIN 20 MG TABLET PO SCH (20:43)
[2017-12-13 06:09] VITALS: BP 110/67
[2017-12-13 08:19] VITALS: BP 125/75
[2017-12-13] MEDS: ESCITALOPRAM OXALATE 10 MG TABLET PO SCH (08:29)
[2017-12-13] MEDS: OMEGA-3/DHA/EPA/FISH OIL 1,000 MG CAPSULE PO SCH (08:29)
[2017-12-13] MEDS: NICOTINE 21 MG/24 HOUR PATCH TD SCH (08:29)
[2017-12-13] MEDS ORDERED: IBUPROFEN 600 MG TABLET PO PRN (16:00)
[2017-12-13 16:03] VITALS: BP 113/74
[2017-12-13] MEDS: QUEtiapine FUMARATE 200 MG TABLET PO SCH (20:35)
[2017-12-13] MEDS: SIMVASTATIN 20 MG TABLET PO SCH (20:35)
[2017-12-14 06:14] VITALS: BP 117/79
[2017-12-14] MEDS: OMEGA-3/DHA/EPA/FISH OIL 1,000 MG CAPSULE PO SCH (08:06)
[2017-12-14] MEDS: ESCITALOPRAM OXALATE 10 MG TABLET PO SCH (08:06)
[2017-12-14] MEDS: NICOTINE 21 MG/24 HOUR PATCH TD SCH (08:06)
[2017-12-14 08:31] VITALS: BP 128/72
[2017-12-14 16:04] VITALS: BP 124/77
[2017-12-14] MEDS: SIMVASTATIN 20 MG TABLET PO SCH (20:53)
[2017-12-14] MEDS: QUEtiapine FUMARATE 200 MG TABLET PO SCH (20:53)
[2017-12-15 06:35] VITALS: BP 118/69
[2017-12-15 08:30] VITALS: BP 124/65
[2017-12-15] MEDS: DENTURE ADHESIVE 68 GM CREAM DT PRN (10:25)
[2017-12-15] MEDS: CHOLECALCIFEROL (VIT D3) 1,000 UNITS TABLET PO SCH (10:27)
[2017-12-15] MEDS: ESCITALOPRAM OXALATE 10 MG TABLET PO SCH (10:27)
[2017-12-15] MEDS: OMEGA-3/DHA/EPA/FISH OIL 1,000 MG CAPSULE PO SCH (10:27)
[2017-12-15] MEDS: NICOTINE 21 MG/24 HOUR PATCH TD SCH (10:29)
[2017-12-15 16:04] VITALS: BP 114/83
[2017-12-15] MEDS: QUEtiapine FUMARATE 200 MG TABLET PO SCH (20:42)
[2017-12-15] MEDS: SIMVASTATIN 20 MG TABLET PO SCH (20:42)
[2017-12-16 06:26] VITALS: BP 130/86
[2017-12-16 08:21] VITALS: BP 120/75
[2017-12-16] MEDS: NICOTINE 21 MG/24 HOUR PATCH TD SCH (08:29)
[2017-12-16] MEDS: ESCITALOPRAM OXALATE 10 MG TABLET PO SCH (08:29)
[2017-12-16] MEDS: OMEGA-3/DHA/EPA/FISH OIL 1,000 MG CAPSULE PO SCH (08:29)
[2017-12-16] MEDS: CHOLECALCIFEROL (VIT D3) 1,000 UNITS TABLET PO SCH (08:29)
[2017-12-16] MEDS: DENTURE ADHESIVE 68 GM CREAM DT PRN (10:12)
[2017-12-16 16:07] VITALS: BP 117/70
[2017-12-16] MEDS: QUEtiapine FUMARATE 200 MG TABLET PO SCH (20:25)
[2017-12-16] MEDS: SIMVASTATIN 20 MG TABLET PO SCH (20:25)
[2017-12-17 00:51] VITALS: BP 103/65
[2017-12-17] MEDS: CHOLECALCIFEROL (VIT D3) 1,000 UNITS TABLET PO SCH (08:00)
[2017-12-17] MEDS: ESCITALOPRAM OXALATE 10 MG TABLET PO SCH (08:00)
[2017-12-17] MEDS: OMEGA-3/DHA/EPA/FISH OIL 1,000 MG CAPSULE PO SCH (08:00)
[2017-12-17] MEDS: NICOTINE 21 MG/24 HOUR PATCH TD SCH (08:01)
[2017-12-17 08:41] VITALS: BP 120/76
[2017-12-17] MEDS: DENTURE ADHESIVE 68 GM CREAM DT PRN (13:03)
[2017-12-17 16:40] VITALS: BP 121/71
[2017-12-17] MEDS: SIMVASTATIN 20 MG TABLET PO SCH (20:42)
[2017-12-17] MEDS: QUEtiapine FUMARATE 200 MG TABLET PO SCH (20:42)
[2017-12-18 02:20] VITALS: BP 129/69
[2017-12-18] MEDS: ESCITALOPRAM OXALATE 10 MG TABLET PO SCH (08:18)
[2017-12-18] MEDS: CHOLECALCIFEROL (VIT D3) 1,000 UNITS TABLET PO SCH (08:18)
[2017-12-18] MEDS: NICOTINE 21 MG/24 HOUR PATCH TD SCH (08:18)
[2017-12-18] MEDS: OMEGA-3/DHA/EPA/FISH OIL 1,000 MG CAPSULE PO SCH (08:18)
[2017-12-18 08:34] VITALS: BP 120/73
[2017-12-18] MEDS: DENTURE ADHESIVE 68 GM CREAM DT PRN (13:10)
[2017-12-18 16:08] VITALS: BP 137/85
[2017-12-18] MEDS: QUEtiapine FUMARATE 200 MG TABLET PO SCH (21:25)
[2017-12-18] MEDS: SIMVASTATIN 20 MG TABLET PO SCH (21:25)
[2017-12-18] MEDS: DICLOFENAC SODIUM 1% 100 GM GEL [2GM] TP SCH (21:25)
[2017-12-19 00:10] VITALS: BP 108/66
[2017-12-19] MEDS: OMEGA-3/DHA/EPA/FISH OIL 1,000 MG CAPSULE PO SCH (08:05)
[2017-12-19] MEDS: CHOLECALCIFEROL (VIT D3) 1,000 UNITS TABLET PO SCH (08:05)
[2017-12-19] MEDS: ESCITALOPRAM OXALATE 10 MG TABLET PO SCH (08:05)
[2017-12-19] MEDS: NICOTINE 21 MG/24 HOUR PATCH TD SCH (08:06)
[2017-12-19] MEDS: DICLOFENAC SODIUM 1% 100 GM GEL [2GM] TP SCH ×2 (08:07→16:13)
[2017-12-19 08:12] VITALS: BP 123/84
[2017-12-19 15:58] VITALS: BP 130/81
[2017-12-19 16:05] VITALS: BP 130/81
[2017-12-19] MEDS: SIMVASTATIN 20 MG TABLET PO SCH (20:08)
[2017-12-19] MEDS: QUEtiapine FUMARATE 200 MG TABLET PO SCH (20:08)
[2017-12-20 07:23] VITALS: BP 125/82
[2017-12-20 07:31] LABS: BASOPHILS % (AUTO) 0.8 % (0.0-2.0); HEMATOCRIT 39.5 % (41-53); HEMOGLOBIN 13.8 g/dL (13.5-17.5); LYMPHOCYTES # (AUTO) 1.4 K/uL (1.0-4.8); LYMPHOCYTES % (AUTO) 36.1 % (22.0-44.0); MEAN CORPUSCULAR HEMOGLOBIN 29.5 pg (26.0-34.0); MEAN CORPUSCULAR VOLUME 85 fL (80-100); MONOCYTES # (AUTO) 0.5 K/uL (0.1-1.0); NEUTROPHILS # (AUTO) 1.8 K/uL (1.8-7.7); NEUTROPHILS % (AUTO) 44.1 % (40.0-70.0); PLATELET COUNT (AUTO) 248 K/uL (150-450); RED BLOOD CELL COUNT(AUTO) 4.68 MIL/uL (4.50-5.90); RED CELL DISTRIBUTION WIDTH 13.1 % (11.5-14.5)
[2017-12-20 08:01] VITALS: BP 128/87
[2017-12-20 08:03] LABS: ANION GAP 6 mmol/L (8-16); CALCIUM, TOTAL 8.6 mg/dL (8.8-10.5); CARBON DIOXIDE 30 mmol/L (22-29); CHLORIDE 103 mmol/L (98-107); CREATININE 1.17 mg/dL (0.60-1.30); GLOMERULAR FILTR. RATE CALC > 60 mL/min (>60); GLUCOSE,RANDOM 98 mg/dL (70-110); PHOSPHORUS 4.4 mg/dL (2.5-4.9); POTASSIUM 4.4 mmol/L (3.5-5.1); SODIUM SERUM 139 mmol/L (136-145); UREA NITROGEN, BLOOD 18 mg/dL (7-18)
[2017-12-20] MEDS: ESCITALOPRAM OXALATE 10 MG TABLET PO SCH (08:24)
[2017-12-20] MEDS: OMEGA-3/DHA/EPA/FISH OIL 1,000 MG CAPSULE PO SCH (08:24)
[2017-12-20] MEDS: NICOTINE 21 MG/24 HOUR PATCH TD SCH (08:24)
[2017-12-20] MEDS: CHOLECALCIFEROL (VIT D3) 1,000 UNITS TABLET PO SCH (08:24)
[2017-12-20] MEDS: DICLOFENAC SODIUM 1% 100 GM GEL [2GM] TP SCH ×2 (08:25→16:37)
[2017-12-20] MEDS: DENTURE ADHESIVE 68 GM CREAM DT PRN (12:58)
[2017-12-20 16:01] VITALS: BP 142/85
[2017-12-20] MEDS: SIMVASTATIN 20 MG TABLET PO SCH (20:35)
[2017-12-20] MEDS: QUEtiapine FUMARATE 200 MG TABLET PO SCH (20:35)
[2017-12-21 00:40] VITALS: BP 108/70
[2017-12-21] MEDS: OMEGA-3/DHA/EPA/FISH OIL 1,000 MG CAPSULE PO SCH (08:17)
[2017-12-21] MEDS: CHOLECALCIFEROL (VIT D3) 1,000 UNITS TABLET PO SCH (08:17)
[2017-12-21] MEDS: ESCITALOPRAM OXALATE 10 MG TABLET PO SCH (08:17)
[2017-12-21] MEDS: NICOTINE 21 MG/24 HOUR PATCH TD SCH (08:17)
[2017-12-21] MEDS: DICLOFENAC SODIUM 1% 100 GM GEL [2GM] TP SCH ×2 (08:18→16:44)
[2017-12-21 08:21] VITALS: BP 118/79
[2017-12-21 16:21] VITALS: BP 130/89
[2017-12-21] MEDS: QUEtiapine FUMARATE 200 MG TABLET PO SCH (20:38)
[2017-12-21] MEDS: SIMVASTATIN 20 MG TABLET PO SCH (20:38)
[2017-12-22 02:08] VITALS: BP 127/72
[2017-12-22 08:19] VITALS: BP 127/88
[2017-12-22] MEDS: ESCITALOPRAM OXALATE 10 MG TABLET PO SCH (08:40)
[2017-12-22] MEDS: OMEGA-3/DHA/EPA/FISH OIL 1,000 MG CAPSULE PO SCH (08:40)
[2017-12-22] MEDS: CHOLECALCIFEROL (VIT D3) 1,000 UNITS TABLET PO SCH (08:40)
[2017-12-22] MEDS: NICOTINE 21 MG/24 HOUR PATCH TD SCH (08:40)
[2017-12-22] MEDS: DICLOFENAC SODIUM 1% 100 GM GEL [2GM] TP SCH ×2 (08:41→17:07)
[2017-12-22 16:13] VITALS: BP 138/84
[2017-12-22] MEDS: QUEtiapine FUMARATE 200 MG TABLET PO SCH (20:33)
[2017-12-22] MEDS: SIMVASTATIN 20 MG TABLET PO SCH (20:33)
[2017-12-22] MEDS ORDERED: MAG HYDROX/AL HYDROX/SIMETH ES 30 ML SUSPENSION UDCUP PO PRN (22:15)
[2017-12-22] MEDS ORDERED: PETROLATUM,WHITE 71 GM JELLY TP PRN (22:15)
[2017-12-22] MEDS ORDERED: LOPERAMIDE HCL 2 MG CAPSULE PO PRN (22:15)
[2017-12-22] MEDS ORDERED: BENZOCAINE/MENTHOL LOZENGE MM PRN (22:15)
[2017-12-22] MEDS ORDERED: BACITRACIN 28.4 GM OINTMENT TP PRN (22:15)
[2017-12-23 03:17] VITALS: BP 137/86
[2017-12-23 08:20] VITALS: BP 135/84
[2017-12-23] MEDS: CHOLECALCIFEROL (VIT D3) 1,000 UNITS TABLET PO SCH (08:41)
[2017-12-23] MEDS: OMEGA-3/DHA/EPA/FISH OIL 1,000 MG CAPSULE PO SCH (08:41)
[2017-12-23] MEDS: OMEPRAZOLE 20 MG CAPSULE PO SCH (08:41)
[2017-12-23] MEDS: ESCITALOPRAM OXALATE 10 MG TABLET PO SCH (08:42)
[2017-12-23] MEDS: DOCUSATE SODIUM 100 MG CAPSULE PO SCH (08:42)
[2017-12-23] MEDS: NICOTINE 21 MG/24 HOUR PATCH TD SCH (08:42)
[2017-12-23] MEDS: DICLOFENAC SODIUM 1% 100 GM GEL [2GM] TP SCH ×2 (08:43→16:34)
[2017-12-23 16:02] VITALS: BP 110/63
[2017-12-23] MEDS: SIMVASTATIN 20 MG TABLET PO SCH (20:37)
[2017-12-23] MEDS: QUEtiapine FUMARATE 200 MG TABLET PO SCH (20:37)
[2017-12-24 01:22] VITALS: BP 103/63
[2017-12-24 07:36] VITALS: BP 121/80
[2017-12-24 08:20] VITALS: BP 121/80
[2017-12-24] MEDS: ESCITALOPRAM OXALATE 10 MG TABLET PO SCH (08:28)
[2017-12-24] MEDS: CHOLECALCIFEROL (VIT D3) 1,000 UNITS TABLET PO SCH (08:28)
[2017-12-24] MEDS: OMEGA-3/DHA/EPA/FISH OIL 1,000 MG CAPSULE PO SCH (08:28)
[2017-12-24] MEDS: DOCUSATE SODIUM 100 MG CAPSULE PO SCH (08:28)
[2017-12-24] MEDS: OMEPRAZOLE 20 MG CAPSULE PO SCH (08:28)
[2017-12-24] MEDS: NICOTINE 21 MG/24 HOUR PATCH TD SCH (08:29)
[2017-12-24] MEDS: DICLOFENAC SODIUM 1% 100 GM GEL [2GM] TP SCH (08:30)
[2017-12-24] MEDS: DENTURE ADHESIVE 68 GM CREAM DT PRN (09:37)
[2017-12-24] MEDS ORDERED: DICL2100G TP (10:54)
[2017-12-24] MEDS ORDERED: CHOL100034 PO (10:56)
== END 2017-12-24 13:30 | disposition home or self-care (01) | DRG 885 ==
LOC: B2X 16:39
PROVIDERS: ADMIT Psychiatry & Neurology Psychiatry; ATTEND Psychiatry & Neurology Psychiatry
DX: F25.9 Schizoaffective disorder, unspecified (principal); R45.851 Suicidal ideations; Z59.0 Homelessness; D72.819 Decreased white blood cell count, unspecified; E78.5 Hyperlipidemia, unspecified; F32.9 Major depressive disorder, single episode, unspecified; F41.9 Anxiety disorder, unspecified; M25.512 Pain in left shoulder; G47.00 Insomnia, unspecified; I10 Essential (primary) hypertension; J44.9 Chronic obstructive pulmonary disease, unspecified; F12.90 Cannabis use, unspecified, uncomplicated; F17.200 Nicotine dependence, unspecified, uncomplicated; Z79.899 Other long term (current) drug therapy; Z88.8 Allergy status to other drugs, medicaments and biological substances; Z80.1 Family history of malignant neoplasm of trachea, bronchus and lung; Z71.51 Drug abuse counseling and surveillance of drug abuser; Z71.6 Tobacco abuse counseling
CPT/HCPCS: 82306; 83735; 84100; 84439; 84443; 85007; 87081

== ENCOUNTER 2018-03-08 09:27 | Inpatient (IN) | payer MEDICARE, MEDICAID ==
[~2018-03-08] VITALS: Ht 165.1 cm; Wt 78.7 kg
[~2018-03-08 09:27] MED LIST changes: +CHOL100034 PO; +DICL2100G TP; -QUET300T2 PO; -SIMV20TA2 PO
[2018-03-08 09:38] VITALS: BP 134/80
[2018-03-08] MEDS ORDERED: ZOLPIDEM TARTRATE 10 MG TABLET PO PRN (10:15)
[2018-03-08] MEDS ORDERED: HALOPERIDOL 5 MG TABLET PO PRN (10:15)
[2018-03-08] MEDS ORDERED: LORazepam 2 MG TABLET PO PRN (10:15)
[2018-03-08] MEDS ORDERED: BENZ1TAB10 PO (11:01)
[2018-03-08] MEDS ORDERED: OLAN7.5T2 PO (11:01)
[2018-03-08] MEDS: NICOTINE 21 MG/24 HOUR PATCH TD SCH (14:28)
[2018-03-08 16:07] VITALS: BP 138/86
[2018-03-08] MEDS ORDERED: PETROLATUM,WHITE 71 GM JELLY TP PRN (19:45)
[2018-03-08] MEDS ORDERED: MAG HYDROX/AL HYDROX/SIMETH ES 30 ML SUSPENSION UDCUP PO PRN (19:45)
[2018-03-08] MEDS ORDERED: BACITRACIN 28.4 GM OINTMENT TP PRN (19:45)
[2018-03-08] MEDS ORDERED: CloNIDine HCL 0.1 MG TABLET PO PRN (19:45)
[2018-03-08] MEDS ORDERED: LOPERAMIDE HCL 2 MG CAPSULE PO PRN (19:45)
[2018-03-08] MEDS ORDERED: IBUPROFEN 600 MG TABLET PO PRN (19:45)
[2018-03-08] MEDS ORDERED: ALBUTEROL SULFATE HFA 90 MCG/PUFF 8 GM INHALER IH PRN (19:45)
[2018-03-08] MEDS ORDERED: ONDANSETRON HCL 4 MG TABLET PO PRN (19:45)
[2018-03-08] MEDS ORDERED: MAGNESIUM HYDROXIDE SUSPENSION 30 ML UDCUP PO PRN (19:45)
[2018-03-08] MEDS ORDERED: ACETAMINOPHEN 325 MG TABLET PO PRN (19:45)
[2018-03-08] MEDS ORDERED: BENZOCAINE/MENTHOL LOZENGE MM PRN (19:45)
[2018-03-08] MEDS: OLANZapine 7.5 MG TABLET PO SCH (20:28)
[2018-03-08] MEDS: SIMVASTATIN 20 MG TABLET PO SCH (20:28)
[2018-03-08] MEDS: OMEGA-3/DHA/EPA/FISH OIL 1,000 MG CAPSULE PO SCH (20:30)
[2018-03-09 06:14] VITALS: BP 109/83
[2018-03-09 08:20] LABS: BASOPHILS % (AUTO) 0.7 % (0.0-2.0); EOSINOPHILS % (AUTO) 10.4 % (1.0-6.0); HEMATOCRIT 44.7 % (41-53); HEMOGLOBIN 15.4 g/dL (13.5-17.5); LYMPHOCYTES # (AUTO) 1.2 K/uL (1.0-4.8); LYMPHOCYTES % (AUTO) 30.6 % (22.0-44.0); MEAN CORPUSCULAR HGB CONC 34.5 G/dL (31.0-37.0); MEAN CORPUSCULAR VOLUME 84 fL (80-100); MONOCYTES # (AUTO) 0.5 K/uL (0.1-1.0); MONOCYTES % (AUTO) 11.8 % (2.0-9.0); NEUTROPHILS # (AUTO) 1.8 K/uL (1.8-7.7); NEUTROPHILS % (AUTO) 46.5 % (40.0-70.0); PLATELET COUNT (AUTO) 263 K/uL (150-450); RED BLOOD CELL COUNT(AUTO) 5.33 MIL/uL (4.50-5.90); RED CELL DISTRIBUTION WIDTH 14.2 % (11.5-14.5)
[2018-03-09] MEDS: CHOLECALCIFEROL (VIT D3) 1,000 UNITS TABLET PO SCH (08:25)
[2018-03-09] MEDS: DOCUSATE SODIUM 100 MG CAPSULE PO SCH (08:25)
[2018-03-09] MEDS: OMEGA-3/DHA/EPA/FISH OIL 1,000 MG CAPSULE PO SCH (08:25)
[2018-03-09] MEDS: ESCITALOPRAM OXALATE 20 MG TABLET PO SCH (08:25)
[2018-03-09] MEDS: OMEPRAZOLE 20 MG CAPSULE PO SCH (08:25)
[2018-03-09 08:27] VITALS: BP 118/67
[2018-03-09] MEDS: DICLOFENAC SODIUM 1% 100 GM GEL [2GM] TP SCH ×2 (08:27→16:33)
[2018-03-09] MEDS: NICOTINE 21 MG/24 HOUR PATCH TD SCH (08:28)
[2018-03-09 08:53] LABS: ALANINE AMINOTRANSFERASE 29 U/L (12-78); ALBUMIN 3.9 g/dL (3.4-5.0); ALKALINE PHOSPHATASE 63 U/L (46-116); ANION GAP 11 mmol/L (8-16); ASPARTATE AMINOTRANSFERASE 21 U/L (15-37); BILIRUBIN,TOTAL 0.3 mg/dL (0.1-1.0); CALCIUM, TOTAL 9.4 mg/dL (8.8-10.5); CARBON DIOXIDE 26 mmol/L (22-29); CHLORIDE 104 mmol/L (98-107); CHOL/HDL RATIO 8.3 (4.2-7.3); CHOLESTEROL 349 mg/dL (131-200); CREATININE 1.28 mg/dL (0.60-1.30); FREE T4 (FREE THYROXINE) 0.58 ng/dL (0.76-1.46); GLOMERULAR FILTR. RATE CALC > 60 mL/min (>60); GLUCOSE,RANDOM 101 mg/dL (70-110); HDL CHOLESTEROL 42 mg/dL (40-60); LDL CHOL (CALC.) 249 mg/dL (0-130); POTASSIUM 4.2 mmol/L (3.5-5.1); SODIUM SERUM 141 mmol/L (136-145); THYROID STIMULATING HORMONE 1.58 uIU/mL (0.36-3.74); TOTAL PROTEIN, SERUM 7.5 g/dL (6.4-8.2); TRIGLYCERIDES 290 mg/dL (15-150); UREA NITROGEN, BLOOD 18 mg/dL (7-18)
[2018-03-09 16:12] VITALS: BP 100/66
[2018-03-09] MEDS: SIMVASTATIN 20 MG TABLET PO SCH (20:30)
[2018-03-09] MEDS: OLANZapine 7.5 MG TABLET PO SCH (20:30)
[2018-03-10 07:07] VITALS: BP 133/76
[2018-03-10 08:15] VITALS: BP 110/78
[2018-03-10] MEDS: ESCITALOPRAM OXALATE 20 MG TABLET PO SCH (08:28)
[2018-03-10] MEDS: DOCUSATE SODIUM 100 MG CAPSULE PO SCH (08:28)
[2018-03-10] MEDS: CHOLECALCIFEROL (VIT D3) 1,000 UNITS TABLET PO SCH (08:28)
[2018-03-10] MEDS: OMEGA-3/DHA/EPA/FISH OIL 1,000 MG CAPSULE PO SCH (08:28)
[2018-03-10] MEDS: OMEPRAZOLE 20 MG CAPSULE PO SCH (08:28)
[2018-03-10] MEDS: NICOTINE 21 MG/24 HOUR PATCH TD SCH (08:29)
[2018-03-10] MEDS: DICLOFENAC SODIUM 1% 100 GM GEL [2GM] TP SCH ×2 (08:29→16:22)
[2018-03-10 16:15] VITALS: BP 115/76
[2018-03-10] MEDS: OLANZapine 7.5 MG TABLET PO SCH (20:07)
[2018-03-10] MEDS: SIMVASTATIN 20 MG TABLET PO SCH (20:07)
[2018-03-11 02:02] VITALS: BP 127/78
[2018-03-11 08:00] VITALS: BP 116/65
[2018-03-11] MEDS: CHOLECALCIFEROL (VIT D3) 1,000 UNITS TABLET PO SCH (08:22)
[2018-03-11] MEDS: OMEPRAZOLE 20 MG CAPSULE PO SCH (08:22)
[2018-03-11] MEDS: DOCUSATE SODIUM 100 MG CAPSULE PO SCH (08:22)
[2018-03-11] MEDS: ESCITALOPRAM OXALATE 20 MG TABLET PO SCH (08:22)
[2018-03-11] MEDS: OMEGA-3/DHA/EPA/FISH OIL 1,000 MG CAPSULE PO SCH (08:22)
[2018-03-11] MEDS: NICOTINE 21 MG/24 HOUR PATCH TD SCH (08:23)
[2018-03-11] MEDS: DICLOFENAC SODIUM 1% 100 GM GEL [2GM] TP SCH ×2 (08:24→16:30)
[2018-03-11 16:07] VITALS: BP 105/64
[2018-03-11] MEDS: OLANZapine 7.5 MG TABLET PO SCH (20:41)
[2018-03-11] MEDS: SIMVASTATIN 20 MG TABLET PO SCH (20:41)
[2018-03-12 06:29] VITALS: BP 101/81
[2018-03-12 08:23] VITALS: BP 128/84
[2018-03-12] MEDS: OMEGA-3/DHA/EPA/FISH OIL 1,000 MG CAPSULE PO SCH (08:26)
[2018-03-12] MEDS: NICOTINE 21 MG/24 HOUR PATCH TD SCH (08:26)
[2018-03-12] MEDS: CHOLECALCIFEROL (VIT D3) 1,000 UNITS TABLET PO SCH (08:26)
[2018-03-12] MEDS: OMEPRAZOLE 20 MG CAPSULE PO SCH (08:26)
[2018-03-12] MEDS: ESCITALOPRAM OXALATE 20 MG TABLET PO SCH (08:26)
[2018-03-12] MEDS: DOCUSATE SODIUM 100 MG CAPSULE PO SCH (08:26)
[2018-03-12] MEDS: DICLOFENAC SODIUM 1% 100 GM GEL [2GM] TP SCH ×2 (08:29→16:32)
[2018-03-12 16:17] VITALS: BP 112/74
[2018-03-12] MEDS ORDERED: DENTURE ADHESIVE 68 GM CREAM DT PRN (16:30)
[2018-03-12] MEDS: SIMVASTATIN 20 MG TABLET PO SCH (20:36)
[2018-03-12] MEDS: OLANZapine 7.5 MG TABLET PO SCH (20:36)
[2018-03-13 06:35] VITALS: BP 141/71
[2018-03-13 08:26] VITALS: BP 105/62
[2018-03-13] MEDS: OMEGA-3/DHA/EPA/FISH OIL 1,000 MG CAPSULE PO SCH (08:31)
[2018-03-13] MEDS: OMEPRAZOLE 20 MG CAPSULE PO SCH (08:31)
[2018-03-13] MEDS: DOCUSATE SODIUM 100 MG CAPSULE PO SCH (08:31)
[2018-03-13] MEDS: CHOLECALCIFEROL (VIT D3) 1,000 UNITS TABLET PO SCH (08:31)
[2018-03-13] MEDS: ESCITALOPRAM OXALATE 20 MG TABLET PO SCH (08:31)
[2018-03-13] MEDS: NICOTINE 21 MG/24 HOUR PATCH TD SCH (08:37)
[2018-03-13] MEDS: DICLOFENAC SODIUM 1% 100 GM GEL [2GM] TP SCH ×2 (08:38→16:10)
[2018-03-13 16:07] VITALS: BP 139/85
[2018-03-13] MEDS: OLANZapine 7.5 MG TABLET PO SCH (20:17)
[2018-03-13] MEDS: SIMVASTATIN 20 MG TABLET PO SCH (20:17)
[2018-03-14 07:00] VITALS: BP 131/82
[2018-03-14] MEDS: ESCITALOPRAM OXALATE 20 MG TABLET PO SCH (08:23)
[2018-03-14] MEDS: NICOTINE 21 MG/24 HOUR PATCH TD SCH (08:23)
[2018-03-14] MEDS: OMEGA-3/DHA/EPA/FISH OIL 1,000 MG CAPSULE PO SCH (08:23)
[2018-03-14] MEDS: CHOLECALCIFEROL (VIT D3) 1,000 UNITS TABLET PO SCH (08:23)
[2018-03-14] MEDS: DOCUSATE SODIUM 100 MG CAPSULE PO SCH (08:23)
[2018-03-14] MEDS: DICLOFENAC SODIUM 1% 100 GM GEL [2GM] TP SCH ×2 (08:23→16:26)
[2018-03-14] MEDS: OMEPRAZOLE 20 MG CAPSULE PO SCH (08:23)
[2018-03-14 08:25] VITALS: BP 124/75
[2018-03-14 16:03] VITALS: BP 119/65
[2018-03-14] MEDS: OLANZapine 7.5 MG TABLET PO SCH (20:19)
[2018-03-14] MEDS: SIMVASTATIN 20 MG TABLET PO SCH (20:19)
[2018-03-15 02:30] VITALS: BP 108/72
[2018-03-15] MEDS: ESCITALOPRAM OXALATE 20 MG TABLET PO SCH (08:55)
[2018-03-15] MEDS: OMEPRAZOLE 20 MG CAPSULE PO SCH (08:56)
[2018-03-15] MEDS: DOCUSATE SODIUM 100 MG CAPSULE PO SCH (08:56)
[2018-03-15] MEDS: CHOLECALCIFEROL (VIT D3) 1,000 UNITS TABLET PO SCH (08:56)
[2018-03-15] MEDS: OMEGA-3/DHA/EPA/FISH OIL 1,000 MG CAPSULE PO SCH (08:56)
[2018-03-15] MEDS: NICOTINE 21 MG/24 HOUR PATCH TD SCH (08:57)
[2018-03-15] MEDS: DICLOFENAC SODIUM 1% 100 GM GEL [2GM] TP SCH ×2 (08:58→16:31)
[2018-03-15 09:41] VITALS: BP 122/75
[2018-03-15 16:19] VITALS: BP 139/76
[2018-03-15] MEDS: SIMVASTATIN 20 MG TABLET PO SCH (20:28)
[2018-03-15] MEDS: OLANZapine 7.5 MG TABLET PO SCH (20:29)
[2018-03-16 06:50] VITALS: BP 123/85
[2018-03-16] MEDS: OMEPRAZOLE 20 MG CAPSULE PO SCH (08:33)
[2018-03-16] MEDS: OMEGA-3/DHA/EPA/FISH OIL 1,000 MG CAPSULE PO SCH (08:33)
[2018-03-16] MEDS: ESCITALOPRAM OXALATE 20 MG TABLET PO SCH (08:34)
[2018-03-16] MEDS: CHOLECALCIFEROL (VIT D3) 1,000 UNITS TABLET PO SCH (08:34)
[2018-03-16] MEDS: DOCUSATE SODIUM 100 MG CAPSULE PO SCH (08:34)
[2018-03-16] MEDS: NICOTINE 21 MG/24 HOUR PATCH TD SCH (08:35)
[2018-03-16] MEDS: DICLOFENAC SODIUM 1% 100 GM GEL [2GM] TP SCH ×2 (08:48→16:36)
[2018-03-16 11:02] VITALS: BP 140/86
[2018-03-16 16:06] VITALS: BP 116/68
[2018-03-16] MEDS: SIMVASTATIN 20 MG TABLET PO SCH (20:31)
[2018-03-16] MEDS: OLANZapine 7.5 MG TABLET PO SCH (20:32)
[2018-03-17 02:30] VITALS: BP 116/68
[2018-03-17] MEDS: ESCITALOPRAM OXALATE 20 MG TABLET PO SCH (08:11)
[2018-03-17] MEDS: OMEGA-3/DHA/EPA/FISH OIL 1,000 MG CAPSULE PO SCH (08:11)
[2018-03-17] MEDS: NICOTINE 21 MG/24 HOUR PATCH TD SCH (08:12)
[2018-03-17] MEDS: CHOLECALCIFEROL (VIT D3) 1,000 UNITS TABLET PO SCH (08:12)
[2018-03-17] MEDS: OMEPRAZOLE 20 MG CAPSULE PO SCH (08:12)
[2018-03-17] MEDS: DOCUSATE SODIUM 100 MG CAPSULE PO SCH (08:12)
[2018-03-17] MEDS: DICLOFENAC SODIUM 1% 100 GM GEL [2GM] TP SCH ×2 (08:14→16:35)
[2018-03-17 08:32] VITALS: BP 145/68
[2018-03-17 16:05] VITALS: BP 122/74
[2018-03-17] MEDS: SIMVASTATIN 20 MG TABLET PO SCH (20:35)
[2018-03-17] MEDS: OLANZapine 7.5 MG TABLET PO SCH (20:35)
[2018-03-18 00:35] VITALS: BP 131/74
[2018-03-18 08:11] VITALS: BP 122/72
[2018-03-18] MEDS: OMEGA-3/DHA/EPA/FISH OIL 1,000 MG CAPSULE PO SCH (08:13)
[2018-03-18] MEDS: OMEPRAZOLE 20 MG CAPSULE PO SCH (08:13)
[2018-03-18] MEDS: CHOLECALCIFEROL (VIT D3) 1,000 UNITS TABLET PO SCH (08:13)
[2018-03-18] MEDS: NICOTINE 21 MG/24 HOUR PATCH TD SCH (08:13)
[2018-03-18] MEDS: DOCUSATE SODIUM 100 MG CAPSULE PO SCH (08:13)
[2018-03-18] MEDS: ESCITALOPRAM OXALATE 20 MG TABLET PO SCH (08:13)
[2018-03-18] MEDS: DICLOFENAC SODIUM 1% 100 GM GEL [2GM] TP SCH ×2 (08:14→16:32)
[2018-03-18 16:04] VITALS: BP 107/63
[2018-03-18] MEDS: OLANZapine 7.5 MG TABLET PO SCH (20:38)
[2018-03-18] MEDS: SIMVASTATIN 20 MG TABLET PO SCH (20:38)
[2018-03-19 06:23] VITALS: BP 134/74
[2018-03-19] MEDS: ESCITALOPRAM OXALATE 20 MG TABLET PO SCH (08:27)
[2018-03-19] MEDS: DOCUSATE SODIUM 100 MG CAPSULE PO SCH (08:27)
[2018-03-19] MEDS: OMEPRAZOLE 20 MG CAPSULE PO SCH (08:27)
[2018-03-19] MEDS: CHOLECALCIFEROL (VIT D3) 1,000 UNITS TABLET PO SCH (08:27)
[2018-03-19] MEDS: NICOTINE 21 MG/24 HOUR PATCH TD SCH (08:27)
[2018-03-19] MEDS: OMEGA-3/DHA/EPA/FISH OIL 1,000 MG CAPSULE PO SCH (08:27)
[2018-03-19] MEDS: DICLOFENAC SODIUM 1% 100 GM GEL [2GM] TP SCH ×2 (08:28→16:40)
[2018-03-19 08:29] VITALS: BP 121/66
[2018-03-19 16:06] VITALS: BP 130/78
[2018-03-19] MEDS: OLANZapine 7.5 MG TABLET PO SCH (20:35)
[2018-03-19] MEDS: SIMVASTATIN 20 MG TABLET PO SCH (20:35)
[2018-03-20 01:25] VITALS: BP 128/78
[2018-03-20 08:27] VITALS: BP 109/82
[2018-03-20] MEDS: CHOLECALCIFEROL (VIT D3) 1,000 UNITS TABLET PO SCH (08:52)
[2018-03-20] MEDS: DOCUSATE SODIUM 100 MG CAPSULE PO SCH (08:52)
[2018-03-20] MEDS: OMEGA-3/DHA/EPA/FISH OIL 1,000 MG CAPSULE PO SCH (08:52)
[2018-03-20] MEDS: ESCITALOPRAM OXALATE 20 MG TABLET PO SCH (08:52)
[2018-03-20] MEDS: OMEPRAZOLE 20 MG CAPSULE PO SCH (08:52)
[2018-03-20] MEDS: NICOTINE 21 MG/24 HOUR PATCH TD SCH (08:53)
[2018-03-20] MEDS: DICLOFENAC SODIUM 1% 100 GM GEL [2GM] TP SCH (08:54)
[2018-03-20] MEDS ORDERED: CLON-570 PO (09:24)
[2018-03-20] MEDS ORDERED: DSS100 PO (09:24)
[2018-03-20] MEDS ORDERED: OMEP20 PO (09:24)
[2018-03-20] MEDS ORDERED: ESCI20TA PO (09:28)
[2018-03-20] MEDS ORDERED: ALBU8HFA IH (09:28)
== END 2018-03-20 13:10 | disposition home or self-care (01) | DRG 885 ==
LOC: B2X 10:08
PROVIDERS: ADMIT Psychiatry & Neurology Psychiatry; ATTEND Psychiatry & Neurology Psychiatry
DX: F25.9 Schizoaffective disorder, unspecified (principal); R45.851 Suicidal ideations; J44.9 Chronic obstructive pulmonary disease, unspecified; I10 Essential (primary) hypertension; F41.9 Anxiety disorder, unspecified; F12.90 Cannabis use, unspecified, uncomplicated; E78.5 Hyperlipidemia, unspecified; F32.9 Major depressive disorder, single episode, unspecified; F17.200 Nicotine dependence, unspecified, uncomplicated; G47.00 Insomnia, unspecified; M25.512 Pain in left shoulder; Z72.89 Other problems related to lifestyle; Z88.3 Allergy status to other anti-infective agents; Z71.6 Tobacco abuse counseling; Z71.41 Alcohol abuse counseling and surveillance of alcoholic; Z80.1 Family history of malignant neoplasm of trachea, bronchus and lung; Z56.0 Unemployment, unspecified; Z71.51 Drug abuse counseling and surveillance of drug abuser; Z79.899 Other long term (current) drug therapy
CPT/HCPCS: 82306; 84439; 84443

== ENCOUNTER 2018-06-19 14:25 | Inpatient (IN) | payer MEDICARE, MEDICAID ==
[~2018-06-19] VITALS: Ht 165.1 cm; Wt 83.0 kg
[~2018-06-19 14:25] MED LIST changes: +ALBU8HFA IH; +CLON-570 PO; +DSS100 PO; +OLAN7.5T2 PO; +OMEP20 PO; -QUET200T PO
[2018-06-19 15:27] VITALS: BP 113/69
[2018-06-19] MEDS ORDERED: LORazepam 2 MG TABLET PO PRN (15:45)
[2018-06-19] MEDS ORDERED: HALOPERIDOL 5 MG TABLET PO PRN (15:45)
[2018-06-19] MEDS ORDERED: ZOLPIDEM TARTRATE 10 MG TABLET PO PRN (15:45)
[2018-06-19] MEDS ORDERED: QUET400T PO (16:00)
[2018-06-19 17:30] VITALS: BP 121/66
[2018-06-19] MEDS ORDERED: ALBUTEROL SULFATE HFA 90 MCG/PUFF 8 GM INHALER IH PRN (18:00)
[2018-06-19] MEDS ORDERED: CloNIDine HCL 0.1 MG TABLET PO PRN (18:00)
[2018-06-19] MEDS ORDERED: DENTURE ADHESIVE 68 GM CREAM DT PRN (18:00)
[2018-06-19] MEDS: SIMVASTATIN 20 MG TABLET PO SCH (20:03)
[2018-06-20 00:48] VITALS: BP 111/63
[2018-06-20 07:42] LABS: BASOPHILS % (AUTO) 0.8 % (0.0-2.0); EOSINOPHILS % (AUTO) 6.6 % (1.0-6.0); HEMATOCRIT 45.2 % (41-53); HEMOGLOBIN 15.2 g/dL (13.5-17.5); LYMPHOCYTES # (AUTO) 1.4 K/uL (1.0-4.8); LYMPHOCYTES % (AUTO) 33.1 % (22.0-44.0); MEAN CORPUSCULAR HEMOGLOBIN 28.5 pg (26.0-34.0); MEAN CORPUSCULAR HGB CONC 33.7 G/dL (31.0-37.0); MEAN CORPUSCULAR VOLUME 85 fL (80-100); MONOCYTES # (AUTO) 0.4 K/uL (0.1-1.0); MONOCYTES % (AUTO) 10.2 % (2.0-9.0); NEUTROPHILS # (AUTO) 2.1 K/uL (1.8-7.7); NEUTROPHILS % (AUTO) 49.3 % (40.0-70.0); PLATELET COUNT (AUTO) 235 K/uL (150-450); RED BLOOD CELL COUNT(AUTO) 5.34 MIL/uL (4.50-5.90); RED CELL DISTRIBUTION WIDTH 14.5 % (11.5-14.5)
[2018-06-20 08:10] LABS: ALANINE AMINOTRANSFERASE 16 U/L (12-78); ALBUMIN 3.4 g/dL (3.4-5.0); ALKALINE PHOSPHATASE 42 U/L (46-116); ANION GAP 6 mmol/L (8-16); ASPARTATE AMINOTRANSFERASE 16 U/L (15-37); BILIRUBIN,TOTAL 0.3 mg/dL (0.1-1.0); CALCIUM, TOTAL 8.5 mg/dL (8.8-10.5); CARBON DIOXIDE 29 mmol/L (22-29); CHLORIDE 107 mmol/L (98-107); CHOL/HDL RATIO 5.9 (4.2-7.3); CHOLESTEROL 183 mg/dL (131-200); CREATININE 1.38 mg/dL (0.60-1.30); FREE T4 (FREE THYROXINE) 0.67 ng/dL (0.76-1.46); GLOMERULAR FILTR. RATE CALC > 60 mL/min (>60); GLUCOSE,RANDOM 90 mg/dL (70-110); HDL CHOLESTEROL 31 mg/dL (40-60); LDL CHOL (CALC.) 115 mg/dL (0-130); POTASSIUM 4.7 mmol/L (3.5-5.1); SODIUM SERUM 142 mmol/L (136-145); THYROID STIMULATING HORMONE 1.16 uIU/mL (0.36-3.74); TOTAL PROTEIN, SERUM 5.7 g/dL (6.4-8.2); TRIGLYCERIDES 187 mg/dL (15-150); UREA NITROGEN, BLOOD 22 mg/dL (7-18)
[2018-06-20 08:15] LABS: AMPHET/METH SCREEN,URINE NEGATIVE (NEGATIVE); BARBITURATE SCREEN, URINE NEGATIVE (NEGATIVE); BENZODIAZEPINES SCREEN,URINE NEGATIVE (NEGATIVE); CANNABINOID SCREEN,URINE NEGATIVE (NEGATIVE); COCAINE SCREEN,URINE POSITIVE (NEGATIVE); METHADONE SCREEN, URINE NEGATIVE (NEGATIVE); OPIATE SCREEN,URINE NEGATIVE (NEGATIVE)
[2018-06-20 08:17] LABS: PHENCYCLIDINE SCREEN,URINE NEGATIVE (NEGATIVE)
[2018-06-20 08:18] VITALS: BP 107/73
[2018-06-20] MEDS: DOCUSATE SODIUM 100 MG CAPSULE PO SCH (08:18)
[2018-06-20] MEDS: OMEGA-3/DHA/EPA/FISH OIL 1,000 MG CAPSULE PO SCH (08:18)
[2018-06-20] MEDS: OMEPRAZOLE 20 MG CAPSULE PO SCH (08:18)
[2018-06-20] MEDS: CHOLECALCIFEROL (VIT D3) 1,000 UNITS TABLET PO SCH (08:18)
[2018-06-20 08:27] LABS: HEMOGLOBIN A1C 6.1 % (4.5-6.2)
[2018-06-20 09:09] LABS: APPEARANCE,URINE CLEAR (CLEAR); BILIRUBIN,URINE NEGATIVE (NEGATIVE); GLUCOSE, URINE (UA) NEGATIVE (NEGATIVE); KETONES,URINE NEGATIVE (NEGATIVE); LEUKOCYTE ESTERASE ,URINE NEGATIVE (NEGATIVE); NITRATE,URINE NEGATIVE (NEGATIVE); OCCULT BLOOD,URINE NEGATIVE (NEGATIVE); PH,URINE 5.5 (5.0-8.0); PROTEIN,URINE NEGATIVE (NEGATIVE)
[2018-06-20] MEDS: NICOTINE 21 MG/24 HOUR PATCH TD SCH (13:01)
[2018-06-20 16:27] VITALS: BP 107/76
[2018-06-20] MEDS: SIMVASTATIN 20 MG TABLET PO SCH (20:30)
[2018-06-20] MEDS: QUEtiapine FUMARATE 200 MG TABLET PO SCH (20:30)
[2018-06-20] MEDS: OLANZapine 7.5 MG TABLET PO SCH (20:31)
[2018-06-21 03:19] VITALS: BP 113/65
[2018-06-21 08:04] VITALS: BP 109/64
[2018-06-21] MEDS: OMEPRAZOLE 20 MG CAPSULE PO SCH (08:22)
[2018-06-21] MEDS: DOCUSATE SODIUM 100 MG CAPSULE PO SCH (08:22)
[2018-06-21] MEDS: CHOLECALCIFEROL (VIT D3) 1,000 UNITS TABLET PO SCH (08:22)
[2018-06-21] MEDS: ESCITALOPRAM OXALATE 20 MG TABLET PO SCH (08:22)
[2018-06-21] MEDS: OMEGA-3/DHA/EPA/FISH OIL 1,000 MG CAPSULE PO SCH (08:22)
[2018-06-21] MEDS: NICOTINE 21 MG/24 HOUR PATCH TD SCH (08:23)
[2018-06-21 16:02] VITALS: BP 118/71
[2018-06-21] MEDS: QUEtiapine FUMARATE 200 MG TABLET PO SCH (20:30)
[2018-06-21] MEDS: SIMVASTATIN 20 MG TABLET PO SCH (20:30)
[2018-06-21] MEDS: OLANZapine 7.5 MG TABLET PO SCH (20:31)
[2018-06-22 06:24] VITALS: BP 121/68
[2018-06-22 08:08] VITALS: BP 105/69
[2018-06-22] MEDS: CHOLECALCIFEROL (VIT D3) 1,000 UNITS TABLET PO SCH (08:10)
[2018-06-22] MEDS: ESCITALOPRAM OXALATE 20 MG TABLET PO SCH (08:10)
[2018-06-22] MEDS: OMEPRAZOLE 20 MG CAPSULE PO SCH (08:10)
[2018-06-22] MEDS: OMEGA-3/DHA/EPA/FISH OIL 1,000 MG CAPSULE PO SCH (08:10)
[2018-06-22] MEDS: DOCUSATE SODIUM 100 MG CAPSULE PO SCH (08:10)
[2018-06-22] MEDS: NICOTINE 21 MG/24 HOUR PATCH TD SCH (08:10)
[2018-06-22 16:06] VITALS: BP 120/75
[2018-06-22] MEDS: SIMVASTATIN 20 MG TABLET PO SCH (20:32)
[2018-06-22] MEDS: OLANZapine 7.5 MG TABLET PO SCH (20:32)
[2018-06-22] MEDS: QUEtiapine FUMARATE 200 MG TABLET PO SCH (20:32)
[2018-06-23 05:35] VITALS: BP 110/70
[2018-06-23 08:03] VITALS: BP 110/66
[2018-06-23] MEDS: CHOLECALCIFEROL (VIT D3) 1,000 UNITS TABLET PO SCH (08:39)
[2018-06-23] MEDS: OMEGA-3/DHA/EPA/FISH OIL 1,000 MG CAPSULE PO SCH (08:39)
[2018-06-23] MEDS: NICOTINE 21 MG/24 HOUR PATCH TD SCH (08:39)
[2018-06-23] MEDS: OMEPRAZOLE 20 MG CAPSULE PO SCH (08:39)
[2018-06-23] MEDS: ESCITALOPRAM OXALATE 20 MG TABLET PO SCH (08:39)
[2018-06-23] MEDS: DOCUSATE SODIUM 100 MG CAPSULE PO SCH (08:39)
[2018-06-23 16:13] VITALS: BP 140/79
[2018-06-23] MEDS: SIMVASTATIN 20 MG TABLET PO SCH (20:24)
[2018-06-23] MEDS: OLANZapine 7.5 MG TABLET PO SCH (20:25)
[2018-06-23] MEDS: QUEtiapine FUMARATE 200 MG TABLET PO SCH (20:25)
[2018-06-24 06:11] VITALS: BP 130/81
[2018-06-24 08:06] VITALS: BP 120/74
[2018-06-24] MEDS: NICOTINE 21 MG/24 HOUR PATCH TD SCH (08:17)
[2018-06-24] MEDS: ESCITALOPRAM OXALATE 20 MG TABLET PO SCH (08:17)
[2018-06-24] MEDS: CHOLECALCIFEROL (VIT D3) 1,000 UNITS TABLET PO SCH (08:17)
[2018-06-24] MEDS: DOCUSATE SODIUM 100 MG CAPSULE PO SCH (08:17)
[2018-06-24] MEDS: OMEPRAZOLE 20 MG CAPSULE PO SCH (08:17)
[2018-06-24] MEDS: OMEGA-3/DHA/EPA/FISH OIL 1,000 MG CAPSULE PO SCH (08:17)
[2018-06-24 16:03] VITALS: BP 119/84
[2018-06-24] MEDS: QUEtiapine FUMARATE 200 MG TABLET PO SCH (20:31)
[2018-06-24] MEDS: SIMVASTATIN 20 MG TABLET PO SCH (20:31)
[2018-06-24] MEDS: OLANZapine 7.5 MG TABLET PO SCH (20:31)
[2018-06-25 05:20] VITALS: BP 110/70
[2018-06-25 08:12] VITALS: BP 106/64
[2018-06-25] MEDS: DOCUSATE SODIUM 100 MG CAPSULE PO SCH (08:24)
[2018-06-25] MEDS: OMEPRAZOLE 20 MG CAPSULE PO SCH (08:24)
[2018-06-25] MEDS: CHOLECALCIFEROL (VIT D3) 1,000 UNITS TABLET PO SCH (08:24)
[2018-06-25] MEDS: ESCITALOPRAM OXALATE 20 MG TABLET PO SCH (08:24)
[2018-06-25] MEDS: OMEGA-3/DHA/EPA/FISH OIL 1,000 MG CAPSULE PO SCH (08:24)
[2018-06-25] MEDS: NICOTINE 21 MG/24 HOUR PATCH TD SCH (08:25)
[2018-06-25 16:42] VITALS: BP 99/72
[2018-06-25] MEDS: SIMVASTATIN 20 MG TABLET PO SCH (20:34)
[2018-06-25] MEDS: OLANZapine 7.5 MG TABLET PO SCH (20:34)
[2018-06-25] MEDS: QUEtiapine FUMARATE 200 MG TABLET PO SCH (20:34)
[2018-06-26 06:27] VITALS: BP 145/84
[2018-06-26 08:16] VITALS: BP 139/86
[2018-06-26] MEDS: OMEPRAZOLE 20 MG CAPSULE PO SCH (08:56)
[2018-06-26] MEDS: NICOTINE 21 MG/24 HOUR PATCH TD SCH (08:56)
[2018-06-26] MEDS: CHOLECALCIFEROL (VIT D3) 1,000 UNITS TABLET PO SCH (08:56)
[2018-06-26] MEDS: OMEGA-3/DHA/EPA/FISH OIL 1,000 MG CAPSULE PO SCH (08:56)
[2018-06-26] MEDS: ESCITALOPRAM OXALATE 20 MG TABLET PO SCH (08:57)
[2018-06-26] MEDS: DOCUSATE SODIUM 100 MG CAPSULE PO SCH (08:57)
[2018-06-26 16:11] VITALS: BP 122/86
[2018-06-26] MEDS: OLANZapine 7.5 MG TABLET PO SCH (20:41)
[2018-06-26] MEDS: QUEtiapine FUMARATE 200 MG TABLET PO SCH (20:41)
[2018-06-26] MEDS: SIMVASTATIN 20 MG TABLET PO SCH (20:41)
[2018-06-27 01:05] VITALS: BP 110/82
[2018-06-27 08:23] VITALS: BP 136/89
[2018-06-27] MEDS: DOCUSATE SODIUM 100 MG CAPSULE PO SCH (08:25)
[2018-06-27] MEDS: CHOLECALCIFEROL (VIT D3) 1,000 UNITS TABLET PO SCH (08:25)
[2018-06-27] MEDS: OMEGA-3/DHA/EPA/FISH OIL 1,000 MG CAPSULE PO SCH (08:25)
[2018-06-27] MEDS: ESCITALOPRAM OXALATE 20 MG TABLET PO SCH (08:25)
[2018-06-27] MEDS: OMEPRAZOLE 20 MG CAPSULE PO SCH (08:25)
[2018-06-27] MEDS: NICOTINE 21 MG/24 HOUR PATCH TD SCH (08:26)
[2018-06-27 16:04] VITALS: BP 135/77
[2018-06-27] MEDS: QUEtiapine FUMARATE 200 MG TABLET PO SCH (20:41)
[2018-06-27] MEDS: SIMVASTATIN 20 MG TABLET PO SCH (20:41)
[2018-06-27] MEDS: OLANZapine 7.5 MG TABLET PO SCH (20:41)
[2018-06-28 02:54] VITALS: BP 126/78
[2018-06-28 08:27] VITALS: BP 117/68
[2018-06-28] MEDS: ESCITALOPRAM OXALATE 20 MG TABLET PO SCH (08:35)
[2018-06-28] MEDS: DOCUSATE SODIUM 100 MG CAPSULE PO SCH (08:35)
[2018-06-28] MEDS: OMEPRAZOLE 20 MG CAPSULE PO SCH (08:35)
[2018-06-28] MEDS: CHOLECALCIFEROL (VIT D3) 1,000 UNITS TABLET PO SCH (08:35)
[2018-06-28] MEDS: OMEGA-3/DHA/EPA/FISH OIL 1,000 MG CAPSULE PO SCH (08:35)
[2018-06-28] MEDS: NICOTINE 21 MG/24 HOUR PATCH TD SCH (08:36)
== END 2018-06-28 13:15 | disposition home or self-care (01) | DRG 885 ==
LOC: B2X 15:43
PROVIDERS: ADMIT Psychiatry & Neurology Psychiatry; ATTEND Psychiatry & Neurology Psychiatry
DX: F25.9 Schizoaffective disorder, unspecified (principal); R45.851 Suicidal ideations; F32.9 Major depressive disorder, single episode, unspecified; G56.00 Carpal tunnel syndrome, unspecified upper limb; I10 Essential (primary) hypertension; J44.9 Chronic obstructive pulmonary disease, unspecified; N28.9 Disorder of kidney and ureter, unspecified; E78.5 Hyperlipidemia, unspecified; E55.9 Vitamin D deficiency, unspecified; F14.10 Cocaine abuse, uncomplicated; F17.200 Nicotine dependence, unspecified, uncomplicated; F41.9 Anxiety disorder, unspecified; M54.9 Dorsalgia, unspecified; Z56.0 Unemployment, unspecified; Z80.1 Family history of malignant neoplasm of trachea, bronchus and lung; Z28.21 Immunization not carried out because of patient refusal; Z88.8 Allergy status to other drugs, medicaments and biological substances; Z79.899 Other long term (current) drug therapy
CPT/HCPCS: 80307; 83036; 84439; 84443

== ENCOUNTER 2018-07-27 18:38 | Inpatient (IN) | payer MEDICARE, MEDICAID ==
[~2018-07-27] VITALS: Ht 165.1 cm; Wt 84.4 kg
[~2018-07-27 18:38] MED LIST changes: -ALBU8HFA IH; -CLON-570 PO; -DICL2100G TP; -DSS100 PO; -FISH1 PO; -OMEP20 PO; +QUET400T PO
[2018-07-27 19:07] VITALS: BP 121/83
[2018-07-27] MEDS ORDERED: ZOLPIDEM TARTRATE 10 MG TABLET PO PRN (19:15)
[2018-07-27] MEDS ORDERED: HALOPERIDOL 5 MG TABLET PO PRN (19:15)
[2018-07-27 20:11] VITALS: BP 129/77
[2018-07-27] MEDS: LORazepam 2 MG TABLET PO PRN (20:22)
[2018-07-28 06:31] VITALS: BP 135/71
[2018-07-28] MEDS ORDERED: LOPERAMIDE HCL 2 MG CAPSULE PO PRN (07:30)
[2018-07-28] MEDS ORDERED: PETROLATUM,WHITE 71 GM JELLY TP PRN (07:30)
[2018-07-28] MEDS ORDERED: CloNIDine HCL 0.1 MG TABLET PO PRN (07:30)
[2018-07-28] MEDS ORDERED: BACITRACIN 28.4 GM OINTMENT TP PRN (07:30)
[2018-07-28] MEDS ORDERED: MAGNESIUM HYDROXIDE SUSPENSION 30 ML UDCUP PO PRN (07:30)
[2018-07-28] MEDS ORDERED: BENZOCAINE/MENTHOL LOZENGE MM PRN (07:30)
[2018-07-28] MEDS ORDERED: ACETAMINOPHEN 325 MG TABLET PO PRN (07:30)
[2018-07-28] MEDS ORDERED: MAG HYDROX/AL HYDROX/SIMETH ES 30 ML SUSPENSION UDCUP PO PRN (07:30)
[2018-07-28] MEDS ORDERED: ALBUTEROL SULFATE HFA 90 MCG/PUFF 8 GM INHALER IH PRN (07:30)
[2018-07-28] MEDS ORDERED: IBUPROFEN 600 MG TABLET PO PRN (07:30)
[2018-07-28] MEDS ORDERED: ONDANSETRON HCL 4 MG TABLET PO PRN (07:30)
[2018-07-28 07:56] LABS: BASOPHILS % (AUTO) 0.7 % (0.0-2.0); EOSINOPHILS % (AUTO) 5.1 % (1.0-6.0); HEMATOCRIT 41.6 % (41-53); HEMOGLOBIN 14.5 g/dL (13.5-17.5); LYMPHOCYTES # (AUTO) 1.5 K/uL (1.0-4.8); LYMPHOCYTES % (AUTO) 31.6 % (22.0-44.0); MEAN CORPUSCULAR HEMOGLOBIN 29.7 pg (26.0-34.0); MEAN CORPUSCULAR HGB CONC 34.9 G/dL (31.0-37.0); MEAN CORPUSCULAR VOLUME 85 fL (80-100); MONOCYTES # (AUTO) 0.6 K/uL (0.1-1.0); MONOCYTES % (AUTO) 11.6 % (2.0-9.0); NEUTROPHILS # (AUTO) 2.4 K/uL (1.8-7.7); PLATELET COUNT (AUTO) 195 K/uL (150-450); RED CELL DISTRIBUTION WIDTH 14.2 % (11.5-14.5)
[2018-07-28 08:05] VITALS: BP 137/65
[2018-07-28 08:22] LABS: HEMOGLOBIN A1C 6.5 % (4.5-6.2)
[2018-07-28 08:31] LABS: ANION GAP 6 mmol/L (8-16); CARBON DIOXIDE 28 mmol/L (22-29); CHLORIDE 107 mmol/L (98-107); CREATININE 1.35 mg/dL (0.60-1.30); GLUCOSE,RANDOM 114 mg/dL (70-110); POTASSIUM 4.2 mmol/L (3.5-5.1); SODIUM SERUM 141 mmol/L (136-145); UREA NITROGEN, BLOOD 22 mg/dL (7-18)
[2018-07-28 08:32] LABS: ALANINE AMINOTRANSFERASE 27 U/L (12-78); ALBUMIN 3.2 g/dL (3.4-5.0); ALKALINE PHOSPHATASE 50 U/L (46-116); ASPARTATE AMINOTRANSFERASE 20 U/L (15-37); BILIRUBIN,TOTAL 0.2 mg/dL (0.1-1.0); CALCIUM, TOTAL 8.5 mg/dL (8.8-10.5); CHOLESTEROL 249 mg/dL (131-200); FREE T4 (FREE THYROXINE) 0.58 ng/dL (0.76-1.46); GLOMERULAR FILTR. RATE CALC > 60 mL/min (>60); HDL CHOLESTEROL 31 mg/dL (40-60); LDL CHOL (CALC.) 161 mg/dL (0-130); THYROID STIMULATING HORMONE 2.08 uIU/mL (0.36-3.74); TOTAL PROTEIN, SERUM 6.1 g/dL (6.4-8.2); TRIGLYCERIDES 287 mg/dL (15-150)
[2018-07-28] MEDS: DOCUSATE SODIUM 100 MG CAPSULE PO SCH (08:53)
[2018-07-28] MEDS: CHOLECALCIFEROL (VIT D3) 1,000 UNITS TABLET PO SCH (08:53)
[2018-07-28] MEDS: OMEPRAZOLE 20 MG CAPSULE PO SCH (08:53)
[2018-07-28] MEDS: NICOTINE 21 MG/24 HOUR PATCH TD SCH (08:53)
[2018-07-28] MEDS ORDERED: DENTURE ADHESIVE 68 GM CREAM DT PRN (11:30)
[2018-07-28 16:00] VITALS: BP 133/78
[2018-07-28] MEDS: LORazepam 2 MG TABLET PO PRN (16:33)
[2018-07-28] MEDS: QUEtiapine FUMARATE 200 MG TABLET PO SCH (20:08)
[2018-07-28] MEDS: SIMVASTATIN 20 MG TABLET PO SCH (20:09)
[2018-07-28] MEDS: OLANZapine 7.5 MG TABLET PO SCH (20:09)
[2018-07-29 03:20] VITALS: BP 125/75
[2018-07-29 08:01] VITALS: BP 140/88
[2018-07-29] MEDS: DOCUSATE SODIUM 100 MG CAPSULE PO SCH (08:27)
[2018-07-29] MEDS: CHOLECALCIFEROL (VIT D3) 1,000 UNITS TABLET PO SCH (08:27)
[2018-07-29] MEDS: ESCITALOPRAM OXALATE 20 MG TABLET PO SCH (08:27)
[2018-07-29] MEDS: OMEPRAZOLE 20 MG CAPSULE PO SCH (08:27)
[2018-07-29] MEDS: NICOTINE 21 MG/24 HOUR PATCH TD SCH (08:28)
[2018-07-29 16:00] VITALS: BP 132/74
[2018-07-29] MEDS: QUEtiapine FUMARATE 200 MG TABLET PO SCH (20:21)
[2018-07-29] MEDS: OLANZapine 7.5 MG TABLET PO SCH (20:21)
[2018-07-29] MEDS: SIMVASTATIN 20 MG TABLET PO SCH (20:22)
[2018-07-30 05:45] VITALS: BP 128/79
[2018-07-30] MEDS: ESCITALOPRAM OXALATE 20 MG TABLET PO SCH (08:10)
[2018-07-30] MEDS: NICOTINE 21 MG/24 HOUR PATCH TD SCH (08:11)
[2018-07-30] MEDS: OMEPRAZOLE 20 MG CAPSULE PO SCH (08:11)
[2018-07-30] MEDS: DOCUSATE SODIUM 100 MG CAPSULE PO SCH (08:11)
[2018-07-30] MEDS: CHOLECALCIFEROL (VIT D3) 1,000 UNITS TABLET PO SCH (08:11)
[2018-07-30 08:42] VITALS: BP 105/57
[2018-07-30 16:00] VITALS: BP 117/78
[2018-07-30] MEDS: SIMVASTATIN 20 MG TABLET PO SCH (20:03)
[2018-07-30] MEDS: QUEtiapine FUMARATE 200 MG TABLET PO SCH (20:03)
[2018-07-30] MEDS: OLANZapine 7.5 MG TABLET PO SCH (20:03)
[2018-07-31 07:07] VITALS: BP 115/75
[2018-07-31 08:02] VITALS: BP 117/70
[2018-07-31] MEDS: OMEPRAZOLE 20 MG CAPSULE PO SCH (08:07)
[2018-07-31] MEDS: NICOTINE 21 MG/24 HOUR PATCH TD SCH (08:07)
[2018-07-31] MEDS: CHOLECALCIFEROL (VIT D3) 1,000 UNITS TABLET PO SCH (08:08)
[2018-07-31] MEDS: DOCUSATE SODIUM 100 MG CAPSULE PO SCH (08:08)
[2018-07-31] MEDS: ESCITALOPRAM OXALATE 20 MG TABLET PO SCH (08:08)
[2018-07-31 16:47] VITALS: BP 118/81
[2018-07-31] MEDS: QUEtiapine FUMARATE 200 MG TABLET PO SCH (20:14)
[2018-07-31] MEDS: SIMVASTATIN 20 MG TABLET PO SCH (20:14)
[2018-07-31] MEDS: OLANZapine 7.5 MG TABLET PO SCH (20:14)
[2018-08-01 06:17] VITALS: BP 107/67
[2018-08-01] MEDS: OMEPRAZOLE 20 MG CAPSULE PO SCH (08:20)
[2018-08-01] MEDS: DOCUSATE SODIUM 100 MG CAPSULE PO SCH (08:20)
[2018-08-01] MEDS: CHOLECALCIFEROL (VIT D3) 1,000 UNITS TABLET PO SCH (08:20)
[2018-08-01] MEDS: ESCITALOPRAM OXALATE 20 MG TABLET PO SCH (08:20)
[2018-08-01] MEDS: NICOTINE 21 MG/24 HOUR PATCH TD SCH (08:22)
[2018-08-01 10:05] VITALS: BP 100/64
[2018-08-01 16:13] VITALS: BP 114/74
[2018-08-01] MEDS: SIMVASTATIN 20 MG TABLET PO SCH (20:06)
[2018-08-01] MEDS: QUEtiapine FUMARATE 200 MG TABLET PO SCH (20:06)
[2018-08-01] MEDS: OLANZapine 7.5 MG TABLET PO SCH (20:07)
[2018-08-02 06:00] VITALS: BP 107/80
[2018-08-02 08:01] VITALS: BP 110/72
[2018-08-02] MEDS: DOCUSATE SODIUM 100 MG CAPSULE PO SCH (08:13)
[2018-08-02] MEDS: ESCITALOPRAM OXALATE 20 MG TABLET PO SCH (08:13)
[2018-08-02] MEDS: OMEPRAZOLE 20 MG CAPSULE PO SCH (08:14)
[2018-08-02] MEDS: CHOLECALCIFEROL (VIT D3) 1,000 UNITS TABLET PO SCH (08:14)
[2018-08-02] MEDS: NICOTINE 21 MG/24 HOUR PATCH TD SCH (08:14)
[2018-08-02] MEDS ORDERED: OMEGA-3/DHA/EPA/FISH OIL 1,000 MG CAPSULE PO SCH (09:00)
[2018-08-02] MEDS ORDERED: OLAN7.5T2 PO (15:33)
[2018-08-02] MEDS ORDERED: QUET200T PO (15:33)
[2018-08-02] MEDS ORDERED: ESCI20TA PO (15:34)
[2018-08-02] MEDS ORDERED: SIMV-260 PO (15:35)
== END 2018-08-02 16:00 | disposition home or self-care (01) | DRG 885 ==
LOC: B3A 19:05
PROVIDERS: ADMIT Psychiatry & Neurology Psychiatry; ATTEND Psychiatry & Neurology Psychiatry
DX: F25.0 Schizoaffective disorder, bipolar type (principal); R45.851 Suicidal ideations; E78.5 Hyperlipidemia, unspecified; F12.90 Cannabis use, unspecified, uncomplicated; F17.200 Nicotine dependence, unspecified, uncomplicated; F41.9 Anxiety disorder, unspecified; I10 Essential (primary) hypertension; J44.9 Chronic obstructive pulmonary disease, unspecified; Z80.1 Family history of malignant neoplasm of trachea, bronchus and lung; Z71.51 Drug abuse counseling and surveillance of drug abuser; Z71.41 Alcohol abuse counseling and surveillance of alcoholic; Z88.8 Allergy status to other drugs, medicaments and biological substances; Z56.0 Unemployment, unspecified; Z72.89 Other problems related to lifestyle
CPT/HCPCS: 83036; 84439; 84443; 87081

== ENCOUNTER 2018-08-16 12:05 | Inpatient (IN) | payer MEDICARE, MEDICAID ==
[~2018-08-16] VITALS: Ht 165.1 cm; Wt 85.4 kg
[~2018-08-16 12:05] MED LIST changes: -CHOL100034 PO; +QUET200T PO; -QUET400T PO
[2018-08-16] MEDS ORDERED: LORazepam 2 MG TABLET PO PRN (13:45)
[2018-08-16] MEDS ORDERED: ZOLPIDEM TARTRATE 10 MG TABLET PO PRN (13:45)
[2018-08-16] MEDS ORDERED: HALOPERIDOL 5 MG TABLET PO PRN (13:45)
[2018-08-16 14:01] VITALS: BP 131/78
[2018-08-16] MEDS: NICOTINE 21 MG/24 HOUR PATCH TD SCH (16:28)
[2018-08-16 16:35] VITALS: BP 111/69
[2018-08-16] MEDS: QUEtiapine FUMARATE 200 MG TABLET PO SCH (20:28)
[2018-08-17 06:17] VITALS: BP 108/62
[2018-08-17 09:14] LABS: BASOPHILS % (AUTO) 0.7 % (0.0-2.0); EOSINOPHILS % (AUTO) 6.6 % (1.0-6.0); HEMATOCRIT 43.5 % (41-53); HEMOGLOBIN 14.5 g/dL (13.5-17.5); LYMPHOCYTES # (AUTO) 1.5 K/uL (1.0-4.8); LYMPHOCYTES % (AUTO) 35.2 % (22.0-44.0); MEAN CORPUSCULAR HEMOGLOBIN 28.2 pg (26.0-34.0); MEAN CORPUSCULAR HGB CONC 33.4 G/dL (31.0-37.0); MEAN CORPUSCULAR VOLUME 84 fL (80-100); MONOCYTES # (AUTO) 0.4 K/uL (0.1-1.0); MONOCYTES % (AUTO) 9.5 % (2.0-9.0); NEUTROPHILS # (AUTO) 2.1 K/uL (1.8-7.7); PLATELET COUNT (AUTO) 235 K/uL (150-450); RED BLOOD CELL COUNT(AUTO) 5.16 MIL/uL (4.50-5.90); RED CELL DISTRIBUTION WIDTH 14.3 % (11.5-14.5)
[2018-08-17 09:35] LABS: HEMOGLOBIN A1C 6.5 % (4.5-6.2)
[2018-08-17 09:36] VITALS: BP 102/61
[2018-08-17 09:43] LABS: AMPHET/METH SCREEN,URINE NEGATIVE (NEGATIVE); BARBITURATE SCREEN, URINE NEGATIVE (NEGATIVE); BENZODIAZEPINES SCREEN,URINE NEGATIVE (NEGATIVE); CANNABINOID SCREEN,URINE NEGATIVE (NEGATIVE); COCAINE SCREEN,URINE POSITIVE (NEGATIVE); METHADONE SCREEN, URINE NEGATIVE (NEGATIVE); OPIATE SCREEN,URINE NEGATIVE (NEGATIVE)
[2018-08-17 09:46] LABS: PHENCYCLIDINE SCREEN,URINE NEGATIVE (NEGATIVE)
[2018-08-17] MEDS: ESCITALOPRAM OXALATE 20 MG TABLET PO SCH (09:47)
[2018-08-17] MEDS: NICOTINE 21 MG/24 HOUR PATCH TD SCH (09:47)
[2018-08-17 09:49] LABS: ALANINE AMINOTRANSFERASE 22 U/L (12-78); ALBUMIN 3.2 g/dL (3.4-5.0); ALKALINE PHOSPHATASE 50 U/L (46-116); ANION GAP 6 mmol/L (8-16); ASPARTATE AMINOTRANSFERASE 19 U/L (15-37); BILIRUBIN,TOTAL 0.3 mg/dL (0.1-1.0); CALCIUM, TOTAL 8.7 mg/dL (8.8-10.5); CARBON DIOXIDE 29 mmol/L (22-29); CHLORIDE 105 mmol/L (98-107); CHOL/HDL RATIO 5.9 (4.2-7.3); CHOLESTEROL 231 mg/dL (131-200); CREATININE 1.29 mg/dL (0.60-1.30); FREE T4 (FREE THYROXINE) 0.74 ng/dL (0.76-1.46); GLOMERULAR FILTR. RATE CALC > 60 mL/min (>60); GLUCOSE,RANDOM 83 mg/dL (70-110); HDL CHOLESTEROL 39 mg/dL (40-60); LDL CHOL (CALC.) 149 mg/dL (0-130); POTASSIUM 4.3 mmol/L (3.5-5.1); SODIUM SERUM 140 mmol/L (136-145); THYROID STIMULATING HORMONE 2.13 uIU/mL (0.36-3.74); TRIGLYCERIDES 214 mg/dL (15-150); UREA NITROGEN, BLOOD 13 mg/dL (7-18)
[2018-08-17 10:27] LABS: APPEARANCE,URINE CLEAR (CLEAR); BILIRUBIN,URINE NEGATIVE (NEGATIVE); GLUCOSE, URINE (UA) NEGATIVE (NEGATIVE); KETONES,URINE NEGATIVE (NEGATIVE); LEUKOCYTE ESTERASE ,URINE TRACE (NEGATIVE); NITRATE,URINE NEGATIVE (NEGATIVE); OCCULT BLOOD,URINE NEGATIVE (NEGATIVE); PROTEIN,URINE NEGATIVE (NEGATIVE)
[2018-08-17 10:55] LABS: BACTERIA,URINE None Seen /HPF (None Seen); RBC,URINE None Seen /HPF (0-2); WBC,URINE 0-2 /HPF (0-5)
[2018-08-17 16:03] VITALS: BP 110/68
[2018-08-17] MEDS: QUEtiapine FUMARATE 200 MG TABLET PO SCH (20:46)
[2018-08-18 00:29] VITALS: BP 100/61
[2018-08-18] MEDS ORDERED: ALBUTEROL SULFATE HFA 90 MCG/PUFF 8 GM INHALER IH PRN (09:15)
[2018-08-18] MEDS ORDERED: CloNIDine HCL 0.1 MG TABLET PO PRN (09:15)
[2018-08-18] MEDS ORDERED: BACITRACIN 28.4 GM OINTMENT TP PRN (09:15)
[2018-08-18] MEDS ORDERED: IBUPROFEN 600 MG TABLET PO PRN (09:15)
[2018-08-18] MEDS ORDERED: ONDANSETRON HCL 4 MG TABLET PO PRN (09:15)
[2018-08-18] MEDS ORDERED: MAGNESIUM HYDROXIDE SUSPENSION 30 ML UDCUP PO PRN (09:15)
[2018-08-18] MEDS ORDERED: MAG HYDROX/AL HYDROX/SIMETH ES 30 ML SUSPENSION UDCUP PO PRN (09:15)
[2018-08-18] MEDS ORDERED: ACETAMINOPHEN 325 MG TABLET PO PRN (09:15)
[2018-08-18] MEDS ORDERED: BENZOCAINE/MENTHOL LOZENGE MM PRN (09:15)
[2018-08-18] MEDS ORDERED: PETROLATUM,WHITE 71 GM JELLY TP PRN (09:15)
[2018-08-18] MEDS ORDERED: LOPERAMIDE HCL 2 MG CAPSULE PO PRN (09:15)
[2018-08-18 09:19] VITALS: BP 104/65
[2018-08-18] MEDS: ESCITALOPRAM OXALATE 20 MG TABLET PO SCH (09:29)
[2018-08-18] MEDS: NICOTINE 21 MG/24 HOUR PATCH TD SCH (09:39)
[2018-08-18 16:22] VITALS: BP 116/68
[2018-08-18] MEDS ORDERED: DENTURE ADHESIVE 68 GM CREAM DT PRN (17:15)
[2018-08-18] MEDS: SIMVASTATIN 20 MG TABLET PO SCH (20:05)
[2018-08-18] MEDS: QUEtiapine FUMARATE 200 MG TABLET PO SCH (20:05)
[2018-08-19 05:48] VITALS: BP 120/81
[2018-08-19 09:38] VITALS: BP 108/62
[2018-08-19] MEDS: NICOTINE 21 MG/24 HOUR PATCH TD SCH (09:47)
[2018-08-19] MEDS: DOCUSATE SODIUM 100 MG CAPSULE PO SCH (09:47)
[2018-08-19] MEDS: OMEPRAZOLE 20 MG CAPSULE PO SCH (09:47)
[2018-08-19] MEDS: ESCITALOPRAM OXALATE 20 MG TABLET PO SCH (09:47)
[2018-08-19 16:52] VITALS: BP 109/70
[2018-08-19] MEDS: QUEtiapine FUMARATE 200 MG TABLET PO SCH (20:31)
[2018-08-19] MEDS: SIMVASTATIN 20 MG TABLET PO SCH (20:31)
[2018-08-20 01:11] VITALS: BP 114/69
[2018-08-20 08:43] VITALS: BP 128/85
[2018-08-20] MEDS: ESCITALOPRAM OXALATE 20 MG TABLET PO SCH (08:59)
[2018-08-20] MEDS: OMEPRAZOLE 20 MG CAPSULE PO SCH (09:00)
[2018-08-20] MEDS: DOCUSATE SODIUM 100 MG CAPSULE PO SCH (09:00)
[2018-08-20] MEDS: NICOTINE 21 MG/24 HOUR PATCH TD SCH (09:11)
[2018-08-20 16:00] VITALS: BP 122/76
[2018-08-20] MEDS: SIMVASTATIN 20 MG TABLET PO SCH (20:23)
[2018-08-20] MEDS: QUEtiapine FUMARATE 200 MG TABLET PO SCH (20:23)
[2018-08-21 03:55] VITALS: BP 103/61
[2018-08-21 08:53] VITALS: BP 133/77
[2018-08-21] MEDS: DOCUSATE SODIUM 100 MG CAPSULE PO SCH (09:00)
[2018-08-21] MEDS: OMEPRAZOLE 20 MG CAPSULE PO SCH (09:00)
[2018-08-21] MEDS: NICOTINE 21 MG/24 HOUR PATCH TD SCH (09:01)
[2018-08-21] MEDS: ESCITALOPRAM OXALATE 20 MG TABLET PO SCH (09:01)
[2018-08-21 17:49] VITALS: BP 131/81
[2018-08-21] MEDS: QUEtiapine FUMARATE 200 MG TABLET PO SCH (20:07)
[2018-08-21] MEDS: SIMVASTATIN 20 MG TABLET PO SCH (20:07)
[2018-08-22 05:58] VITALS: BP 126/78
[2018-08-22 08:43] VITALS: BP 119/72
[2018-08-22] MEDS: DOCUSATE SODIUM 100 MG CAPSULE PO SCH (08:53)
[2018-08-22] MEDS: OMEPRAZOLE 20 MG CAPSULE PO SCH (08:53)
[2018-08-22] MEDS: NICOTINE 21 MG/24 HOUR PATCH TD SCH (08:53)
[2018-08-22] MEDS: ESCITALOPRAM OXALATE 20 MG TABLET PO SCH (08:54)
[2018-08-22 16:31] VITALS: BP 110/68
[2018-08-22] MEDS: SIMVASTATIN 20 MG TABLET PO SCH (20:36)
[2018-08-22] MEDS: QUEtiapine FUMARATE 200 MG TABLET PO SCH (20:36)
[2018-08-23 06:27] VITALS: BP 108/72
[2018-08-23 08:09] VITALS: BP 121/68
[2018-08-23] MEDS: ESCITALOPRAM OXALATE 20 MG TABLET PO SCH (09:28)
[2018-08-23] MEDS: OMEPRAZOLE 20 MG CAPSULE PO SCH (09:28)
[2018-08-23] MEDS: NICOTINE 21 MG/24 HOUR PATCH TD SCH (09:28)
[2018-08-23] MEDS: DOCUSATE SODIUM 100 MG CAPSULE PO SCH (09:28)
[2018-08-23 16:17] VITALS: BP 130/78
[2018-08-23] MEDS: SIMVASTATIN 20 MG TABLET PO SCH (19:22)
[2018-08-23] MEDS: QUEtiapine FUMARATE 200 MG TABLET PO SCH (19:22)
[2018-08-24 00:56] VITALS: BP 111/72
[2018-08-24 08:40] VITALS: BP 136/72
[2018-08-24] MEDS ORDERED: OMEGA-3/DHA/EPA/FISH OIL 1,000 MG CAPSULE PO SCH (09:00)
[2018-08-24] MEDS: DOCUSATE SODIUM 100 MG CAPSULE PO SCH (09:00)
[2018-08-24] MEDS: OMEPRAZOLE 20 MG CAPSULE PO SCH (09:00)
[2018-08-24] MEDS: ESCITALOPRAM OXALATE 20 MG TABLET PO SCH (09:42)
[2018-08-24] MEDS: NICOTINE 21 MG/24 HOUR PATCH TD SCH (10:00)
== END 2018-08-24 12:56 | disposition home or self-care (01) | DRG 885 ==
LOC: B2S 13:44
PROVIDERS: ADMIT Psychiatry & Neurology Psychiatry; ATTEND Psychiatry & Neurology Psychiatry
DX: F20.0 Paranoid schizophrenia (principal); R45.851 Suicidal ideations; E78.5 Hyperlipidemia, unspecified; F12.90 Cannabis use, unspecified, uncomplicated; F17.200 Nicotine dependence, unspecified, uncomplicated; G47.00 Insomnia, unspecified; I10 Essential (primary) hypertension; J44.9 Chronic obstructive pulmonary disease, unspecified; Z59.0 Homelessness; Z71.6 Tobacco abuse counseling; Z80.1 Family history of malignant neoplasm of trachea, bronchus and lung
CPT/HCPCS: 80307; 83036; 84439; 84443

== ENCOUNTER 2018-09-07 18:06 | Inpatient (IN) | payer MEDICARE, MEDICAID ==
[~2018-09-07] VITALS: Ht 165.1 cm; Wt 84.0 kg
[~2018-09-07 18:06] MED LIST changes: -OLAN7.5T2 PO
[2018-09-07] MEDS ORDERED: ZOLPIDEM TARTRATE 10 MG TABLET PO PRN (19:30)
[2018-09-07] MEDS ORDERED: HALOPERIDOL 5 MG TABLET PO PRN (19:30)
[2018-09-07] MEDS ORDERED: LORazepam 2 MG TABLET PO PRN (19:30)
[2018-09-07 20:02] VITALS: BP 142/85
[2018-09-07 20:30] VITALS: BP 110/76
[2018-09-07] MEDS ORDERED: -PHARMACY VACCINE NOTE- MISC ONE (20:30)
[2018-09-07] MEDS ORDERED: BENZOCAINE/MENTHOL LOZENGE MM PRN (21:15)
[2018-09-07] MEDS ORDERED: ALBUTEROL SULFATE HFA 90 MCG/PUFF 8 GM INHALER IH PRN (21:15)
[2018-09-07] MEDS ORDERED: CloNIDine HCL 0.1 MG TABLET PO PRN (21:15)
[2018-09-07] MEDS ORDERED: ONDANSETRON HCL 4 MG TABLET PO PRN (21:15)
[2018-09-07] MEDS ORDERED: MAG HYDROX/AL HYDROX/SIMETH ES 30 ML SUSPENSION UDCUP PO PRN (21:15)
[2018-09-07] MEDS ORDERED: DENTURE ADHESIVE 68 GM CREAM DT PRN (21:15)
[2018-09-07] MEDS ORDERED: BACITRACIN 28.4 GM OINTMENT TP PRN (21:15)
[2018-09-07] MEDS ORDERED: IBUPROFEN 600 MG TABLET PO PRN (21:15)
[2018-09-07] MEDS ORDERED: ACETAMINOPHEN 325 MG TABLET PO PRN (21:15)
[2018-09-07] MEDS ORDERED: PETROLATUM,WHITE 71 GM JELLY TP PRN (21:15)
[2018-09-07] MEDS ORDERED: MAGNESIUM HYDROXIDE SUSPENSION 30 ML UDCUP PO PRN (21:15)
[2018-09-07] MEDS ORDERED: LOPERAMIDE HCL 2 MG CAPSULE PO PRN (21:15)
[2018-09-08 05:30] VITALS: BP 120/81
[2018-09-08 07:48] LABS: BASOPHILS % (AUTO) 0.5 % (0.0-2.0); EOSINOPHILS % (AUTO) 5.4 % (1.0-6.0); HEMATOCRIT 43.3 % (41-53); LYMPHOCYTES # (AUTO) 1.4 K/uL (1.0-4.8); LYMPHOCYTES % (AUTO) 29.4 % (22.0-44.0); MEAN CORPUSCULAR HEMOGLOBIN 29.3 pg (26.0-34.0); MEAN CORPUSCULAR HGB CONC 34.7 G/dL (31.0-37.0); MEAN CORPUSCULAR VOLUME 85 fL (80-100); MONOCYTES # (AUTO) 0.5 K/uL (0.1-1.0); NEUTROPHILS # (AUTO) 2.5 K/uL (1.8-7.7); NEUTROPHILS % (AUTO) 53.7 % (40.0-70.0); PLATELET COUNT (AUTO) 282 K/uL (150-450); RED BLOOD CELL COUNT(AUTO) 5.13 MIL/uL (4.50-5.90); RED CELL DISTRIBUTION WIDTH 14.6 % (11.5-14.5)
[2018-09-08 07:58] LABS: HEMOGLOBIN A1C 5.9 % (4.5-6.2)
[2018-09-08 08:12] VITALS: BP 120/72
[2018-09-08 08:21] LABS: ALANINE AMINOTRANSFERASE 24 U/L (12-78); ALBUMIN 3.4 g/dL (3.4-5.0); ALKALINE PHOSPHATASE 55 U/L (46-116); ANION GAP 7 mmol/L (8-16); ASPARTATE AMINOTRANSFERASE 36 U/L (15-37); BILIRUBIN,TOTAL 0.5 mg/dL (0.1-1.0); CALCIUM, TOTAL 8.8 mg/dL (8.8-10.5); CARBON DIOXIDE 28 mmol/L (22-29); CHLORIDE 103 mmol/L (98-107); CHOLESTEROL 238 mg/dL (131-200); FREE T4 (FREE THYROXINE) 0.73 ng/dL (0.76-1.46); GLOMERULAR FILTR. RATE CALC > 60 mL/min (>60); GLUCOSE,RANDOM 94 mg/dL (70-110); HDL CHOLESTEROL 40 mg/dL (40-60); LDL CHOL (CALC.) 156 mg/dL (0-130); POTASSIUM 3.9 mmol/L (3.5-5.1); SODIUM SERUM 138 mmol/L (136-145); THYROID STIMULATING HORMONE 0.66 uIU/mL (0.36-3.74); TOTAL PROTEIN, SERUM 6.4 g/dL (6.4-8.2); TRIGLYCERIDES 208 mg/dL (15-150); UREA NITROGEN, BLOOD 15 mg/dL (7-18)
[2018-09-08] MEDS: OMEGA-3/DHA/EPA/FISH OIL 1,000 MG CAPSULE PO SCH (09:00)
[2018-09-08] MEDS: DOCUSATE SODIUM 100 MG CAPSULE PO SCH (09:00)
[2018-09-08] MEDS: OMEPRAZOLE 20 MG CAPSULE PO SCH (09:00)
[2018-09-08] MEDS: NICOTINE 21 MG/24 HOUR PATCH TD SCH (09:01)
[2018-09-08 16:24] VITALS: BP 118/86
[2018-09-08] MEDS: QUEtiapine FUMARATE 200 MG TABLET PO SCH (20:10)
[2018-09-09 00:20] VITALS: BP 113/81
[2018-09-09 08:05] VITALS: BP 130/80
[2018-09-09] MEDS: ESCITALOPRAM OXALATE 20 MG TABLET PO SCH (08:14)
[2018-09-09] MEDS: NICOTINE 21 MG/24 HOUR PATCH TD SCH (08:14)
[2018-09-09] MEDS: OMEPRAZOLE 20 MG CAPSULE PO SCH (08:37)
[2018-09-09] MEDS: DOCUSATE SODIUM 100 MG CAPSULE PO SCH (08:37)
[2018-09-09] MEDS: OMEGA-3/DHA/EPA/FISH OIL 1,000 MG CAPSULE PO SCH (08:37)
[2018-09-09 16:11] VITALS: BP 112/73
[2018-09-09] MEDS: QUEtiapine FUMARATE 200 MG TABLET PO SCH (20:05)
[2018-09-10 05:55] VITALS: BP 117/81
[2018-09-10 08:07] VITALS: BP 131/77
[2018-09-10] MEDS: NICOTINE 21 MG/24 HOUR PATCH TD SCH (08:21)
[2018-09-10] MEDS: ESCITALOPRAM OXALATE 20 MG TABLET PO SCH (08:21)
[2018-09-10] MEDS: DOCUSATE SODIUM 100 MG CAPSULE PO SCH (08:33)
[2018-09-10] MEDS: OMEGA-3/DHA/EPA/FISH OIL 1,000 MG CAPSULE PO SCH (08:33)
[2018-09-10] MEDS: OMEPRAZOLE 20 MG CAPSULE PO SCH (08:33)
[2018-09-10 16:25] VITALS: BP 117/78
[2018-09-10] MEDS: QUEtiapine FUMARATE 200 MG TABLET PO SCH (20:30)
[2018-09-11 00:15] VITALS: BP 114/78
[2018-09-11 08:05] VITALS: BP 126/68
[2018-09-11] MEDS: ESCITALOPRAM OXALATE 20 MG TABLET PO SCH (08:16)
[2018-09-11] MEDS: NICOTINE 21 MG/24 HOUR PATCH TD SCH (08:16)
[2018-09-11] MEDS: OMEPRAZOLE 20 MG CAPSULE PO SCH (08:25)
[2018-09-11] MEDS: OMEGA-3/DHA/EPA/FISH OIL 1,000 MG CAPSULE PO SCH (08:25)
[2018-09-11] MEDS: DOCUSATE SODIUM 100 MG CAPSULE PO SCH (08:25)
[2018-09-11 16:12] VITALS: BP 129/90
[2018-09-11] MEDS: QUEtiapine FUMARATE 200 MG TABLET PO SCH (20:05)
[2018-09-12 04:28] VITALS: BP 109/69
[2018-09-12] MEDS: NICOTINE 21 MG/24 HOUR PATCH TD SCH (08:26)
[2018-09-12] MEDS: ESCITALOPRAM OXALATE 20 MG TABLET PO SCH (08:26)
[2018-09-12 08:27] VITALS: BP 109/68
[2018-09-12] MEDS: OMEPRAZOLE 20 MG CAPSULE PO SCH (08:32)
[2018-09-12] MEDS: OMEGA-3/DHA/EPA/FISH OIL 1,000 MG CAPSULE PO SCH (08:32)
[2018-09-12] MEDS: DOCUSATE SODIUM 100 MG CAPSULE PO SCH (08:32)
[2018-09-12 16:11] VITALS: BP 119/75
[2018-09-12] MEDS: QUEtiapine FUMARATE 200 MG TABLET PO SCH (20:01)
[2018-09-13 03:42] VITALS: BP 113/72
[2018-09-13 08:00] VITALS: BP 115/63
[2018-09-13] MEDS ORDERED: DOCUSATE SODIUM 100 MG CAPSULE PO PRN (08:30)
[2018-09-13] MEDS ORDERED: OMEPRAZOLE 20 MG CAPSULE PO PRN (08:30)
[2018-09-13] MEDS: OMEGA-3/DHA/EPA/FISH OIL 1,000 MG CAPSULE PO SCH (08:46)
[2018-09-13] MEDS: ESCITALOPRAM OXALATE 20 MG TABLET PO SCH (08:48)
[2018-09-13] MEDS: NICOTINE 21 MG/24 HOUR PATCH TD SCH (08:48)
[2018-09-13 16:53] VITALS: BP 125/68
[2018-09-13] MEDS: QUEtiapine FUMARATE 200 MG TABLET PO SCH (20:35)
[2018-09-13] MEDS: SIMVASTATIN 10 MG TABLET PO SCH (20:36)
[2018-09-14 00:42] VITALS: BP 122/72
[2018-09-14 08:17] VITALS: BP 140/80
[2018-09-14] MEDS: ESCITALOPRAM OXALATE 20 MG TABLET PO SCH (08:28)
[2018-09-14] MEDS: OMEGA-3/DHA/EPA/FISH OIL 1,000 MG CAPSULE PO SCH (08:28)
[2018-09-14] MEDS: NICOTINE 21 MG/24 HOUR PATCH TD SCH (08:29)
[2018-09-14 16:29] VITALS: BP 127/82
[2018-09-14] MEDS: QUEtiapine FUMARATE 200 MG TABLET PO SCH (20:34)
[2018-09-14] MEDS: SIMVASTATIN 10 MG TABLET PO SCH (20:34)
[2018-09-14] MEDS ORDERED: OMEG-135 PO (21:47)
[2018-09-15 03:00] VITALS: BP 113/77
[2018-09-15] MEDS: ESCITALOPRAM OXALATE 20 MG TABLET PO SCH (08:13)
[2018-09-15] MEDS: OMEGA-3/DHA/EPA/FISH OIL 1,000 MG CAPSULE PO SCH (08:13)
[2018-09-15] MEDS: NICOTINE 21 MG/24 HOUR PATCH TD SCH (08:14)
[2018-09-15 08:25] VITALS: BP 108/61
== END 2018-09-15 09:45 | disposition home or self-care (01) | DRG 885 ==
LOC: B2X 19:31
PROVIDERS: ADMIT Psychiatry & Neurology Psychiatry; ATTEND Psychiatry & Neurology Psychiatry
DX: F25.9 Schizoaffective disorder, unspecified (principal); R45.851 Suicidal ideations; Z28.21 Immunization not carried out because of patient refusal; E78.00 Pure hypercholesterolemia, unspecified; E78.5 Hyperlipidemia, unspecified; F12.90 Cannabis use, unspecified, uncomplicated; F17.200 Nicotine dependence, unspecified, uncomplicated; F41.9 Anxiety disorder, unspecified; G47.00 Insomnia, unspecified; I10 Essential (primary) hypertension; J44.9 Chronic obstructive pulmonary disease, unspecified; Z80.1 Family history of malignant neoplasm of trachea, bronchus and lung; Z72.89 Other problems related to lifestyle
CPT/HCPCS: 83036; 84439; 84443; 87081

== ENCOUNTER 2018-11-21 11:52 | Inpatient (IN) | payer MEDICARE, MEDICAID ==
[~2018-11-21] VITALS: Ht 165.1 cm; Wt 82.6 kg
[~2018-11-21 11:52] MED LIST changes: +OMEP20 PO; -SIMV-260 PO
[2018-11-22] MEDS ORDERED: ZOLPIDEM TARTRATE 10 MG TABLET PO PRN (18:45)
[2018-11-22] MEDS ORDERED: LORazepam 2 MG TABLET PO PRN (18:45)
[2018-11-22] MEDS ORDERED: HALOPERIDOL 5 MG TABLET PO PRN (18:45)
[2018-11-22 19:01] VITALS: BP 113/78
[2018-11-22] MEDS ORDERED: -PHARMACY VACCINE NOTE- MISC ONE (19:45)
[2018-11-23 05:43] VITALS: BP 100/60
[2018-11-23 08:02] VITALS: BP 126/69
[2018-11-23] MEDS: NICOTINE 21 MG/24 HOUR PATCH TD SCH (08:51)
[2018-11-23] MEDS: OMEPRAZOLE 20 MG CAPSULE PO SCH (08:51)
[2018-11-23 08:57] LABS: BASOPHILS % (AUTO) 0.6 % (0.0-2.0); EOSINOPHILS % (AUTO) 6.2 % (1.0-6.0); HEMATOCRIT 45.5 % (41-53); LYMPHOCYTES # (AUTO) 1.3 K/uL (1.0-4.8); LYMPHOCYTES % (AUTO) 31.7 % (22.0-44.0); MEAN CORPUSCULAR HEMOGLOBIN 28.1 pg (26.0-34.0); MEAN CORPUSCULAR HGB CONC 32.9 G/dL (31.0-37.0); MEAN CORPUSCULAR VOLUME 85 fL (80-100); MONOCYTES # (AUTO) 0.4 K/uL (0.1-1.0); MONOCYTES % (AUTO) 9.2 % (2.0-9.0); NEUTROPHILS # (AUTO) 2.1 K/uL (1.8-7.7); NEUTROPHILS % (AUTO) 52.3 % (40.0-70.0); PLATELET COUNT (AUTO) 209 K/uL (150-450); RED BLOOD CELL COUNT(AUTO) 5.32 MIL/uL (4.50-5.90); RED CELL DISTRIBUTION WIDTH 15.3 % (11.5-14.5)
[2018-11-23 08:59] LABS: HEMOGLOBIN A1C 6.3 % (4.5-6.2)
[2018-11-23 09:08] LABS: ALANINE AMINOTRANSFERASE 19 U/L (12-78); ALBUMIN 3.3 g/dL (3.4-5.0); ALKALINE PHOSPHATASE 36 U/L (46-116); ANION GAP 6 mmol/L (8-16); ASPARTATE AMINOTRANSFERASE 15 U/L (15-37); BILIRUBIN,TOTAL 0.3 mg/dL (0.1-1.0); CALCIUM, TOTAL 8.5 mg/dL (8.8-10.5); CARBON DIOXIDE 28 mmol/L (22-29); CHLORIDE 107 mmol/L (98-107); CHOL/HDL RATIO 6.3 (4.2-7.3); CHOLESTEROL 188 mg/dL (131-200); CREATININE 1.45 mg/dL (0.60-1.30); FREE T4 (FREE THYROXINE) 0.77 ng/dL (0.76-1.46); GLOMERULAR FILTR. RATE CALC > 60 mL/min (>60); GLUCOSE,RANDOM 86 mg/dL (70-110); HDL CHOLESTEROL 30 mg/dL (40-60); LDL CHOL (CALC.) 129 mg/dL (0-130); POTASSIUM 4.3 mmol/L (3.5-5.1); SODIUM SERUM 141 mmol/L (136-145); THYROID STIMULATING HORMONE 1.87 uIU/mL (0.36-3.74); TOTAL PROTEIN, SERUM 5.4 g/dL (6.4-8.2); TRIGLYCERIDES 146 mg/dL (15-150); UREA NITROGEN, BLOOD 17 mg/dL (7-18)
[2018-11-23] MEDS ORDERED: DENTURE ADHESIVE 68 GM CREAM DT PRN (10:15)
[2018-11-23] MEDS: ESCITALOPRAM OXALATE 20 MG TABLET PO SCH (13:28)
[2018-11-23 16:30] VITALS: BP 110/74
[2018-11-23] MEDS: QUEtiapine FUMARATE 200 MG TABLET PO SCH (20:34)
[2018-11-23] MEDS ORDERED: ACETAMINOPHEN 325 MG TABLET PO PRN (20:45)
[2018-11-23] MEDS ORDERED: PETROLATUM,WHITE 28 GM JELLY TP PRN (20:45)
[2018-11-23] MEDS ORDERED: MAG HYDROX/AL HYDROX/SIMETH ES 30 ML SUSPENSION UDCUP PO PRN (20:45)
[2018-11-23] MEDS ORDERED: BACITRACIN 28.4 GM OINTMENT TP PRN (20:45)
[2018-11-23] MEDS ORDERED: ALBUTEROL SULFATE HFA 90 MCG/PUFF 8 GM INHALER IH PRN (20:45)
[2018-11-23] MEDS ORDERED: CloNIDine HCL 0.1 MG TABLET PO PRN (20:45)
[2018-11-23] MEDS ORDERED: MAGNESIUM HYDROXIDE SUSPENSION 30 ML UDCUP PO PRN (20:45)
[2018-11-23] MEDS ORDERED: ONDANSETRON HCL 4 MG TABLET PO PRN (20:45)
[2018-11-23] MEDS ORDERED: LOPERAMIDE HCL 2 MG CAPSULE PO PRN (20:45)
[2018-11-23] MEDS ORDERED: IBUPROFEN 600 MG TABLET PO PRN (20:45)
[2018-11-23] MEDS ORDERED: BENZOCAINE/MENTHOL LOZENGE MM PRN (20:45)
[2018-11-24 05:36] VITALS: BP 116/70
[2018-11-24] MEDS: DOCUSATE SODIUM 100 MG CAPSULE PO SCH (08:38)
[2018-11-24] MEDS: OMEPRAZOLE 20 MG CAPSULE PO SCH (08:38)
[2018-11-24] MEDS: ESCITALOPRAM OXALATE 20 MG TABLET PO SCH (08:38)
[2018-11-24] MEDS: NICOTINE 21 MG/24 HOUR PATCH TD SCH (08:39)
[2018-11-24] MEDS ORDERED: OMEPRAZOLE 20 MG CAPSULE PO SCH (09:00)
[2018-11-24 16:00] VITALS: BP 107/72
[2018-11-24] MEDS: QUEtiapine FUMARATE 200 MG TABLET PO SCH (20:31)
[2018-11-25 08:10] VITALS: BP 102/68
[2018-11-25] MEDS: ESCITALOPRAM OXALATE 20 MG TABLET PO SCH (08:50)
[2018-11-25] MEDS: DOCUSATE SODIUM 100 MG CAPSULE PO SCH (08:50)
[2018-11-25] MEDS: NICOTINE 21 MG/24 HOUR PATCH TD SCH (08:51)
[2018-11-25] MEDS: OMEPRAZOLE 20 MG CAPSULE PO SCH (08:51)
[2018-11-25 16:00] VITALS: BP 108/74
[2018-11-25] MEDS: QUEtiapine FUMARATE 200 MG TABLET PO SCH (20:30)
[2018-11-26 08:03] VITALS: BP 117/86
[2018-11-26] MEDS: OMEPRAZOLE 20 MG CAPSULE PO SCH (08:29)
[2018-11-26] MEDS: ESCITALOPRAM OXALATE 20 MG TABLET PO SCH (08:29)
[2018-11-26] MEDS: NICOTINE 21 MG/24 HOUR PATCH TD SCH (08:29)
[2018-11-26] MEDS: DOCUSATE SODIUM 100 MG CAPSULE PO SCH (08:29)
[2018-11-26 16:15] VITALS: BP 111/64
[2018-11-26] MEDS: QUEtiapine FUMARATE 200 MG TABLET PO SCH (20:10)
[2018-11-27 08:06] VITALS: BP 99/62
[2018-11-27] MEDS: ESCITALOPRAM OXALATE 20 MG TABLET PO SCH (08:06)
[2018-11-27] MEDS: DOCUSATE SODIUM 100 MG CAPSULE PO SCH (08:06)
[2018-11-27] MEDS: OMEPRAZOLE 20 MG CAPSULE PO SCH (08:06)
[2018-11-27] MEDS: NICOTINE 21 MG/24 HOUR PATCH TD SCH (08:07)
[2018-11-27 16:04] VITALS: BP 126/79
[2018-11-27] MEDS: QUEtiapine FUMARATE 200 MG TABLET PO SCH (20:38)
[2018-11-28 06:21] VITALS: BP 129/83
[2018-11-28 08:03] VITALS: BP 109/61
[2018-11-28] MEDS: OMEPRAZOLE 20 MG CAPSULE PO SCH (08:30)
[2018-11-28] MEDS: DOCUSATE SODIUM 100 MG CAPSULE PO SCH (08:30)
[2018-11-28] MEDS: ESCITALOPRAM OXALATE 20 MG TABLET PO SCH (08:30)
[2018-11-28] MEDS: NICOTINE 21 MG/24 HOUR PATCH TD SCH (08:31)
[2018-11-28 16:09] VITALS: BP 129/74
[2018-11-28] MEDS: QUEtiapine FUMARATE 200 MG TABLET PO SCH (20:41)
[2018-11-29 08:06] VITALS: BP 119/67
[2018-11-29] MEDS: OMEPRAZOLE 20 MG CAPSULE PO SCH (08:25)
[2018-11-29] MEDS: DOCUSATE SODIUM 100 MG CAPSULE PO SCH (08:25)
[2018-11-29] MEDS: ESCITALOPRAM OXALATE 20 MG TABLET PO SCH (08:25)
[2018-11-29] MEDS: NICOTINE 21 MG/24 HOUR PATCH TD SCH (08:26)
[2018-11-29 16:13] VITALS: BP 118/70
[2018-11-29] MEDS: QUEtiapine FUMARATE 200 MG TABLET PO SCH (20:44)
[2018-11-30 06:58] VITALS: BP 140/76
[2018-11-30 08:04] VITALS: BP 109/66
[2018-11-30] MEDS: NICOTINE 21 MG/24 HOUR PATCH TD SCH (08:23)
[2018-11-30] MEDS: OMEPRAZOLE 20 MG CAPSULE PO SCH (08:23)
[2018-11-30] MEDS: ESCITALOPRAM OXALATE 20 MG TABLET PO SCH (08:23)
[2018-11-30] MEDS: DOCUSATE SODIUM 100 MG CAPSULE PO SCH (08:23)
== END 2018-11-30 12:05 | disposition home or self-care (01) | DRG 885 ==
LOC: B2X 11-22 18:49
PROVIDERS: ADMIT Psychiatry & Neurology Psychiatry; ATTEND Psychiatry & Neurology Psychiatry
DX: F25.9 Schizoaffective disorder, unspecified (principal); R45.851 Suicidal ideations; J44.9 Chronic obstructive pulmonary disease, unspecified; I10 Essential (primary) hypertension; F41.9 Anxiety disorder, unspecified; G47.00 Insomnia, unspecified; F17.200 Nicotine dependence, unspecified, uncomplicated; F12.90 Cannabis use, unspecified, uncomplicated; E78.5 Hyperlipidemia, unspecified; Z71.6 Tobacco abuse counseling; Z72.89 Other problems related to lifestyle; Z56.0 Unemployment, unspecified; Z80.1 Family history of malignant neoplasm of trachea, bronchus and lung; Z71.41 Alcohol abuse counseling and surveillance of alcoholic; Z88.8 Allergy status to other drugs, medicaments and biological substances; Z71.51 Drug abuse counseling and surveillance of drug abuser
CPT/HCPCS: 83036; 84439; 84443

== ENCOUNTER 2018-12-26 14:11 | Inpatient (IN) | payer MEDICARE, MEDICAID ==
[~2018-12-26] VITALS: Ht 165.1 cm; Wt 78.5 kg
[~2018-12-26 14:11] MED LIST changes: -OMEP20 PO
[2018-12-26] MEDS ORDERED: HALOPERIDOL 5 MG TABLET PO PRN (19:45)
[2018-12-26] MEDS ORDERED: LORazepam 2 MG TABLET PO PRN (19:45)
[2018-12-26 20:01] VITALS: BP 133/68
[2018-12-26] MEDS ORDERED: -PHARMACY VACCINE NOTE- MISC ONE (20:45)
[2018-12-26 20:57] VITALS: BP 116/79
[2018-12-27 06:16] VITALS: BP 114/78
[2018-12-27 07:38] LABS: EOSINOPHILS % (AUTO) 8.1 % (1.0-6.0); HEMATOCRIT 46.5 % (41-53); HEMOGLOBIN 15.3 g/dL (13.5-17.5); LYMPHOCYTES # (AUTO) 1.2 K/uL (1.0-4.8); LYMPHOCYTES % (AUTO) 34.4 % (22.0-44.0); MEAN CORPUSCULAR HEMOGLOBIN 28.2 pg (26.0-34.0); MEAN CORPUSCULAR HGB CONC 32.9 G/dL (31.0-37.0); MEAN CORPUSCULAR VOLUME 86 fL (80-100); MONOCYTES # (AUTO) 0.3 K/uL (0.1-1.0); MONOCYTES % (AUTO) 7.7 % (2.0-9.0); NEUTROPHILS # (AUTO) 1.8 K/uL (1.8-7.7); NEUTROPHILS % (AUTO) 48.8 % (40.0-70.0); PLATELET COUNT (AUTO) 251 K/uL (150-450); RED BLOOD CELL COUNT(AUTO) 5.43 MIL/uL (4.50-5.90); RED CELL DISTRIBUTION WIDTH 14.6 % (11.5-14.5)
[2018-12-27 07:49] LABS: HEMOGLOBIN A1C 5.8 % (4.5-6.2)
[2018-12-27 08:02] LABS: ALANINE AMINOTRANSFERASE 23 U/L (12-78); ALBUMIN 3.2 g/dL (3.4-5.0); ALKALINE PHOSPHATASE 44 U/L (46-116); ANION GAP 9 mmol/L (8-16); ASPARTATE AMINOTRANSFERASE 20 U/L (15-37); BILIRUBIN,TOTAL 0.3 mg/dL (0.1-1.0); CALCIUM, TOTAL 8.6 mg/dL (8.8-10.5); CARBON DIOXIDE 29 mmol/L (22-29); CHLORIDE 106 mmol/L (98-107); CHOL/HDL RATIO 5.6 (4.2-7.3); CHOLESTEROL 201 mg/dL (131-200); CREATININE 1.26 mg/dL (0.60-1.30); FREE T4 (FREE THYROXINE) 0.73 ng/dL (0.76-1.46); GLOMERULAR FILTR. RATE CALC > 60 mL/min (>60); GLUCOSE,RANDOM 96 mg/dL (70-110); HDL CHOLESTEROL 36 mg/dL (40-60); LDL CHOL (CALC.) 119 mg/dL (0-130); POTASSIUM 4.2 mmol/L (3.5-5.1); SODIUM SERUM 144 mmol/L (136-145); THYROID STIMULATING HORMONE 1.66 uIU/mL (0.36-3.74); TOTAL PROTEIN, SERUM 6.1 g/dL (6.4-8.2); TRIGLYCERIDES 230 mg/dL (15-150); UREA NITROGEN, BLOOD 18 mg/dL (7-18)
[2018-12-27 08:12] VITALS: BP 112/76
[2018-12-27] MEDS: ESCITALOPRAM OXALATE 20 MG TABLET PO SCH (10:25)
[2018-12-27 16:00] VITALS: BP 113/66
[2018-12-27] MEDS: QUEtiapine FUMARATE 200 MG TABLET PO SCH (20:34)
[2018-12-27] MEDS: ZOLPIDEM TARTRATE 10 MG TABLET PO PRN (20:35)
[2018-12-28 05:42] VITALS: BP 114/71
[2018-12-28 08:05] VITALS: BP 100/59
[2018-12-28] MEDS: ESCITALOPRAM OXALATE 20 MG TABLET PO SCH (08:51)
[2018-12-28] MEDS ORDERED: DENTURE ADHESIVE 68 GM CREAM DT PRN (14:00)
[2018-12-28 16:00] VITALS: BP 114/63
[2018-12-28] MEDS: QUEtiapine FUMARATE 200 MG TABLET PO SCH (20:13)
[2018-12-28] MEDS: ZOLPIDEM TARTRATE 10 MG TABLET PO PRN (20:16)
[2018-12-29 06:48] VITALS: BP 91/63
[2018-12-29 08:16] VITALS: BP 98/51
[2018-12-29] MEDS: ESCITALOPRAM OXALATE 20 MG TABLET PO SCH (08:33)
[2018-12-29] MEDS: NICOTINE 21 MG/24 HOUR PATCH TD SCH (08:33)
[2018-12-29 16:01] VITALS: BP 108/68
[2018-12-29] MEDS: ZOLPIDEM TARTRATE 10 MG TABLET PO PRN (20:28)
[2018-12-29] MEDS: QUEtiapine FUMARATE 200 MG TABLET PO SCH (20:28)
[2018-12-30 05:41] VITALS: BP 132/78
[2018-12-30 08:16] VITALS: BP 105/60
[2018-12-30] MEDS: NICOTINE 21 MG/24 HOUR PATCH TD SCH (09:28)
[2018-12-30] MEDS: ESCITALOPRAM OXALATE 20 MG TABLET PO SCH (09:28)
[2018-12-30 16:58] VITALS: BP 104/68
[2018-12-30] MEDS: QUEtiapine FUMARATE 200 MG TABLET PO SCH (20:15)
[2018-12-30] MEDS: ZOLPIDEM TARTRATE 10 MG TABLET PO PRN (20:15)
[2018-12-30] MEDS ORDERED: BACITRACIN 28.4 GM OINTMENT TP PRN (20:30)
[2018-12-30] MEDS ORDERED: MAGNESIUM HYDROXIDE SUSPENSION 30 ML UDCUP PO PRN (20:30)
[2018-12-30] MEDS ORDERED: PETROLATUM,WHITE 28 GM JELLY TP PRN (20:30)
[2018-12-30] MEDS ORDERED: ACETAMINOPHEN 325 MG TABLET PO PRN (20:30)
[2018-12-30] MEDS ORDERED: ONDANSETRON HCL 4 MG TABLET PO PRN (20:30)
[2018-12-30] MEDS ORDERED: BENZOCAINE/MENTHOL LOZENGE MM PRN (20:30)
[2018-12-30] MEDS ORDERED: MAG HYDROX/AL HYDROX/SIMETH ES 30 ML SUSPENSION UDCUP PO PRN (20:30)
[2018-12-30] MEDS ORDERED: LOPERAMIDE HCL 2 MG CAPSULE PO PRN (20:30)
[2018-12-30] MEDS ORDERED: ALBUTEROL SULFATE HFA 90 MCG/PUFF 8 GM INHALER IH PRN (20:30)
[2018-12-30] MEDS ORDERED: IBUPROFEN 600 MG TABLET PO PRN (20:30)
[2018-12-30] MEDS ORDERED: CloNIDine HCL 0.1 MG TABLET PO PRN (20:30)
[2018-12-31 01:59] VITALS: BP 114/75
[2018-12-31] MEDS ORDERED: MULTIVITAMINS WITH MINERALS, THERAPEUTIC TABLET PO SCH ×2 (07:30)
[2018-12-31 08:02] VITALS: BP 123/72
[2018-12-31] MEDS: OMEGA-3/DHA/EPA/FISH OIL 1,000 MG CAPSULE PO SCH (09:40)
[2018-12-31] MEDS: NICOTINE 21 MG/24 HOUR PATCH TD SCH (09:40)
[2018-12-31] MEDS: OMEPRAZOLE 20 MG CAPSULE PO SCH (09:40)
[2018-12-31] MEDS: DOCUSATE SODIUM 100 MG CAPSULE PO SCH (09:40)
[2018-12-31] MEDS: ESCITALOPRAM OXALATE 20 MG TABLET PO SCH (09:40)
[2018-12-31] MEDS: MULTIVITAMINS WITH MINERALS, THERAPEUTIC TABLET PO SCH (09:50)
[2018-12-31 16:23] VITALS: BP 116/76
[2018-12-31] MEDS: QUEtiapine FUMARATE 200 MG TABLET PO SCH (20:54)
[2019-01-01 05:51] VITALS: BP 118/78
[2019-01-01 05:54] VITALS: BP 104/66
[2019-01-01 08:02] VITALS: BP 101/62
[2019-01-01] MEDS: OMEGA-3/DHA/EPA/FISH OIL 1,000 MG CAPSULE PO SCH (08:59)
[2019-01-01] MEDS: DOCUSATE SODIUM 100 MG CAPSULE PO SCH (08:59)
[2019-01-01] MEDS: OMEPRAZOLE 20 MG CAPSULE PO SCH (08:59)
[2019-01-01] MEDS: MULTIVITAMINS WITH MINERALS, THERAPEUTIC TABLET PO SCH (09:03)
[2019-01-01] MEDS: ESCITALOPRAM OXALATE 20 MG TABLET PO SCH (09:03)
[2019-01-01] MEDS: NICOTINE 21 MG/24 HOUR PATCH TD SCH (09:08)
[2019-01-01 16:25] VITALS: BP 110/63
[2019-01-01] MEDS: QUEtiapine FUMARATE 200 MG TABLET PO SCH (20:34)
[2019-01-02 00:57] VITALS: BP 114/75
[2019-01-02 08:02] VITALS: BP 104/57
[2019-01-02] MEDS: OMEPRAZOLE 20 MG CAPSULE PO SCH (09:19)
[2019-01-02] MEDS: MULTIVITAMINS WITH MINERALS, THERAPEUTIC TABLET PO SCH (09:19)
[2019-01-02] MEDS: OMEGA-3/DHA/EPA/FISH OIL 1,000 MG CAPSULE PO SCH (09:19)
[2019-01-02] MEDS: DOCUSATE SODIUM 100 MG CAPSULE PO SCH (09:19)
[2019-01-02] MEDS: NICOTINE 21 MG/24 HOUR PATCH TD SCH (09:19)
[2019-01-02] MEDS: ESCITALOPRAM OXALATE 20 MG TABLET PO SCH (09:19)
== END 2019-01-02 13:20 | disposition home or self-care (01) | DRG 885 ==
LOC: B3A 19:44
PROVIDERS: ADMIT Psychiatry & Neurology Psychiatry; ATTEND Psychiatry & Neurology Psychiatry
DX: F25.1 Schizoaffective disorder, depressive type (principal); E78.5 Hyperlipidemia, unspecified; F12.90 Cannabis use, unspecified, uncomplicated; F17.200 Nicotine dependence, unspecified, uncomplicated; F41.9 Anxiety disorder, unspecified; G47.00 Insomnia, unspecified; I10 Essential (primary) hypertension; J44.9 Chronic obstructive pulmonary disease, unspecified; Z80.1 Family history of malignant neoplasm of trachea, bronchus and lung
CPT/HCPCS: 83036; 84439; 84443; 87081

== ENCOUNTER 2019-04-18 17:59 | Inpatient (IN) | payer MEDICARE, MEDICAID ==
[~2019-04-18] VITALS: Ht 165.1 cm; Wt 81.0 kg
[2019-04-18] MEDS ORDERED: ZOLPIDEM TARTRATE 10 MG TABLET PO PRN (18:15)
[2019-04-18] MEDS ORDERED: HALOPERIDOL 5 MG TABLET PO PRN (18:15)
[2019-04-18 18:35] VITALS: BP 129/85
[2019-04-18] MEDS: QUEtiapine FUMARATE 200 MG TABLET PO SCH (20:48)
[2019-04-19 02:33] VITALS: BP 121/68
[2019-04-19] MEDS ORDERED: ALBUTEROL SULFATE HFA 90 MCG/PUFF 8 GM INHALER IH PRN (07:30)
[2019-04-19] MEDS ORDERED: MAG HYDROX/AL HYDROX/SIMETH ES 30 ML SUSPENSION UDCUP PO PRN (07:30)
[2019-04-19] MEDS ORDERED: PETROLATUM,WHITE 28 GM JELLY TP PRN (07:30)
[2019-04-19] MEDS ORDERED: IBUPROFEN 600 MG TABLET PO PRN (07:30)
[2019-04-19] MEDS ORDERED: BACITRACIN 28.4 GM OINTMENT TP PRN (07:30)
[2019-04-19] MEDS ORDERED: CloNIDine HCL 0.1 MG TABLET PO PRN (07:30)
[2019-04-19] MEDS ORDERED: OMEPRAZOLE 20 MG CAPSULE PO PRN (07:30)
[2019-04-19] MEDS ORDERED: MAGNESIUM HYDROXIDE SUSPENSION 30 ML UDCUP PO PRN (07:30)
[2019-04-19] MEDS ORDERED: ONDANSETRON HCL 4 MG TABLET PO PRN (07:30)
[2019-04-19] MEDS ORDERED: LOPERAMIDE HCL 2 MG CAPSULE PO PRN (07:30)
[2019-04-19] MEDS ORDERED: ACETAMINOPHEN 325 MG TABLET PO PRN (07:30)
[2019-04-19] MEDS ORDERED: BENZOCAINE/MENTHOL LOZENGE MM PRN (07:30)
[2019-04-19] MEDS ORDERED: DOCUSATE SODIUM 100 MG CAPSULE PO PRN (07:30)
[2019-04-19 08:11] VITALS: BP 114/64
[2019-04-19 08:13] LABS: BASOPHILS % (AUTO) 0.5 % (0.0-2.0); EOSINOPHILS % (AUTO) 6.5 % (1.0-6.0); HEMATOCRIT 45.3 % (41-53); HEMOGLOBIN 14.9 g/dL (13.5-17.5); LYMPHOCYTES # (AUTO) 1.7 K/uL (1.0-4.8); LYMPHOCYTES % (AUTO) 37.2 % (22.0-44.0); MEAN CORPUSCULAR HEMOGLOBIN 28.5 pg (26.0-34.0); MEAN CORPUSCULAR VOLUME 86 fL (80-100); MONOCYTES # (AUTO) 0.4 K/uL (0.1-1.0); MONOCYTES % (AUTO) 9.5 % (2.0-9.0); NEUTROPHILS # (AUTO) 2.1 K/uL (1.8-7.7); NEUTROPHILS % (AUTO) 46.3 % (40.0-70.0); PLATELET COUNT (AUTO) 253 K/uL (150-450); RED BLOOD CELL COUNT(AUTO) 5.25 MIL/uL (4.50-5.90); RED CELL DISTRIBUTION WIDTH 14.4 % (11.5-14.5)
[2019-04-19] MEDS: ESCITALOPRAM OXALATE 20 MG TABLET PO SCH (08:20)
[2019-04-19 08:51] LABS: ALANINE AMINOTRANSFERASE 21 U/L (12-78); ALBUMIN 3.4 g/dL (3.4-5.0); ALKALINE PHOSPHATASE 49 U/L (46-116); ANION GAP 10 mmol/L (8-16); ASPARTATE AMINOTRANSFERASE 19 U/L (15-37); BILIRUBIN,TOTAL 0.3 mg/dL (0.1-1.0); CALCIUM, TOTAL 9.2 mg/dL (8.8-10.5); CARBON DIOXIDE 27 mmol/L (22-29); CHLORIDE 103 mmol/L (98-107); CHOL/HDL RATIO 7.7 (4.2-7.3); CHOLESTEROL 294 mg/dL (131-200); CREATININE 1.37 mg/dL (0.60-1.30); GLOMERULAR FILTR. RATE CALC > 60 mL/min (>60); GLUCOSE,RANDOM 106 mg/dL (70-110); HDL CHOLESTEROL 38 mg/dL (40-60); POTASSIUM 3.8 mmol/L (3.5-5.1); SODIUM SERUM 140 mmol/L (136-145); THYROID STIMULATING HORMONE 3.36 uIU/mL (0.36-3.74); TOTAL PROTEIN, SERUM 6.4 g/dL (6.4-8.2); TRIGLYCERIDES 606 mg/dL (15-150); UREA NITROGEN, BLOOD 10 mg/dL (7-18)
[2019-04-19 16:09] VITALS: BP 130/69
[2019-04-19] MEDS ORDERED: DENTURE ADHESIVE 68 GM CREAM DT PRN (17:00)
[2019-04-19] MEDS: NICOTINE 21 MG/24 HOUR PATCH TD SCH (17:15)
[2019-04-19] MEDS: QUEtiapine FUMARATE 200 MG TABLET PO SCH (20:32)
[2019-04-20 05:00] VITALS: BP 120/71
[2019-04-20] MEDS: NICOTINE 21 MG/24 HOUR PATCH TD SCH (08:23)
[2019-04-20] MEDS: ESCITALOPRAM OXALATE 20 MG TABLET PO SCH (08:23)
[2019-04-20 11:57] VITALS: BP 125/78
[2019-04-20 16:07] VITALS: BP 136/84
[2019-04-20] MEDS: QUEtiapine FUMARATE 200 MG TABLET PO SCH (20:04)
[2019-04-21 06:49] VITALS: BP 124/80
[2019-04-21 08:11] VITALS: BP 114/69
[2019-04-21] MEDS: ESCITALOPRAM OXALATE 20 MG TABLET PO SCH (08:17)
[2019-04-21] MEDS: NICOTINE 21 MG/24 HOUR PATCH TD SCH (08:17)
[2019-04-21 16:15] VITALS: BP 140/81
[2019-04-21] MEDS: LORazepam 2 MG TABLET PO PRN (16:43)
[2019-04-21] MEDS: QUEtiapine FUMARATE 200 MG TABLET PO SCH (20:09)
[2019-04-22 01:04] VITALS: BP 134/90
[2019-04-22 08:03] VITALS: BP 131/65
[2019-04-22] MEDS: NICOTINE 21 MG/24 HOUR PATCH TD SCH (08:19)
[2019-04-22] MEDS: ESCITALOPRAM OXALATE 20 MG TABLET PO SCH (08:19)
[2019-04-22 16:05] VITALS: BP 126/71
[2019-04-22] MEDS: SIMVASTATIN 20 MG TABLET PO SCH (20:12)
[2019-04-22] MEDS: QUEtiapine FUMARATE 200 MG TABLET PO SCH (20:12)
[2019-04-23 00:27] VITALS: BP 140/80
[2019-04-23 08:09] VITALS: BP 109/76
[2019-04-23] MEDS: ESCITALOPRAM OXALATE 20 MG TABLET PO SCH (08:45)
[2019-04-23] MEDS: NICOTINE 21 MG/24 HOUR PATCH TD SCH (08:45)
[2019-04-23] MEDS: LORazepam 2 MG TABLET PO PRN (16:16)
[2019-04-23 16:45] VITALS: BP 120/77
[2019-04-23] MEDS: SIMVASTATIN 20 MG TABLET PO SCH (20:28)
[2019-04-23] MEDS: QUEtiapine FUMARATE 200 MG TABLET PO SCH (20:28)
[2019-04-24 00:56] VITALS: BP 104/65
[2019-04-24 08:10] VITALS: BP 122/67
[2019-04-24] MEDS: ESCITALOPRAM OXALATE 20 MG TABLET PO SCH (08:30)
[2019-04-24] MEDS: NICOTINE 21 MG/24 HOUR PATCH TD SCH (08:30)
[2019-04-24] MEDS ORDERED: SIMV-260 PO (08:33)
== END 2019-04-24 09:55 | disposition home or self-care (01) | DRG 885 ==
LOC: B2X 18:28
PROVIDERS: ADMIT Psychiatry & Neurology Psychiatry; ATTEND Psychiatry & Neurology Psychiatry
DX: F25.9 Schizoaffective disorder, unspecified (principal); E78.5 Hyperlipidemia, unspecified; F12.90 Cannabis use, unspecified, uncomplicated; F17.200 Nicotine dependence, unspecified, uncomplicated; F32.9 Major depressive disorder, single episode, unspecified; F41.9 Anxiety disorder, unspecified; G47.00 Insomnia, unspecified; I10 Essential (primary) hypertension; J44.9 Chronic obstructive pulmonary disease, unspecified; Z71.6 Tobacco abuse counseling; Z71.51 Drug abuse counseling and surveillance of drug abuser; Z79.899 Other long term (current) drug therapy; Z56.0 Unemployment, unspecified; Z88.8 Allergy status to other drugs, medicaments and biological substances; Z72.89 Other problems related to lifestyle
CPT/HCPCS: 83036; 84439; 84443

== ENCOUNTER 2019-05-30 13:47 | Inpatient (IN) | payer MEDICARE, MEDICAID ==
[~2019-05-30] VITALS: Ht 165.1 cm; Wt 82.8 kg
[~2019-05-30 13:47] MED LIST changes: +SIMV-260 PO
[2019-05-30] MEDS ORDERED: LORazepam 2 MG TABLET PO PRN (16:45)
[2019-05-30] MEDS ORDERED: ZOLPIDEM TARTRATE 10 MG TABLET PO PRN (16:45)
[2019-05-30] MEDS ORDERED: HALOPERIDOL 5 MG TABLET PO PRN (16:45)
[2019-05-30 16:46] VITALS: BP 140/74
[2019-05-30] MEDS ORDERED: INFLUENZA VIRUS VACCINE QVS 2019-20 (3YR+)/PF 60 MCG/0.5 ML SYRINGE IM ONE (17:30)
[2019-05-30] MEDS ORDERED: MAGNESIUM HYDROXIDE SUSPENSION 30 ML UDCUP PO PRN (20:15)
[2019-05-30] MEDS ORDERED: ALBUTEROL SULFATE HFA 90 MCG/PUFF 8 GM INHALER IH PRN (20:15)
[2019-05-30] MEDS ORDERED: MAG HYDROX/AL HYDROX/SIMETH ES 30 ML SUSPENSION UDCUP PO PRN (20:15)
[2019-05-30] MEDS ORDERED: IBUPROFEN 600 MG TABLET PO PRN (20:15)
[2019-05-30] MEDS ORDERED: PETROLATUM,WHITE 28 GM JELLY TP PRN (20:15)
[2019-05-30] MEDS ORDERED: ACETAMINOPHEN 325 MG TABLET PO PRN (20:15)
[2019-05-30] MEDS ORDERED: BENZOCAINE/MENTHOL LOZENGE MM PRN (20:15)
[2019-05-30] MEDS ORDERED: BACITRACIN 28.4 GM OINTMENT TP PRN (20:15)
[2019-05-30] MEDS ORDERED: CloNIDine HCL 0.1 MG TABLET PO PRN (20:15)
[2019-05-30] MEDS ORDERED: ONDANSETRON HCL 4 MG TABLET PO PRN (20:15)
[2019-05-30] MEDS ORDERED: LOPERAMIDE HCL 2 MG CAPSULE PO PRN (20:15)
[2019-05-30] MEDS: QUEtiapine FUMARATE 200 MG TABLET PO SCH (20:22)
[2019-05-30] MEDS: SIMVASTATIN 20 MG TABLET PO SCH (20:28)
[2019-05-31 06:48] VITALS: BP 136/78
[2019-05-31 08:11] LABS: BASOPHILS % (AUTO) 0.8 % (0.0-2.0); EOSINOPHILS % (AUTO) 8.7 % (1.0-6.0); HEMATOCRIT 42.7 % (41-53); HEMOGLOBIN 14.7 g/dL (13.5-17.5); LYMPHOCYTES # (AUTO) 1.3 K/uL (1.0-4.8); LYMPHOCYTES % (AUTO) 37.6 % (22.0-44.0); MEAN CORPUSCULAR HEMOGLOBIN 29.4 pg (26.0-34.0); MEAN CORPUSCULAR HGB CONC 34.5 G/dL (31.0-37.0); MEAN CORPUSCULAR VOLUME 85 fL (80-100); MONOCYTES # (AUTO) 0.3 K/uL (0.1-1.0); MONOCYTES % (AUTO) 10.1 % (2.0-9.0); NEUTROPHILS # (AUTO) 1.4 K/uL (1.8-7.7); NEUTROPHILS % (AUTO) 42.8 % (40.0-70.0); PLATELET COUNT (AUTO) 252 K/uL (150-450); RED BLOOD CELL COUNT(AUTO) 5.01 MIL/uL (4.50-5.90); RED CELL DISTRIBUTION WIDTH 14.1 % (11.5-14.5)
[2019-05-31 08:18] LABS: HEMOGLOBIN A1C 5.4 % (4.5-6.2)
[2019-05-31 08:20] VITALS: BP 119/77
[2019-05-31] MEDS: DOCUSATE SODIUM 100 MG CAPSULE PO SCH (08:32)
[2019-05-31] MEDS: OMEPRAZOLE 20 MG CAPSULE PO SCH (08:32)
[2019-05-31] MEDS: ESCITALOPRAM OXALATE 20 MG TABLET PO SCH (08:32)
[2019-05-31 08:38] LABS: ALANINE AMINOTRANSFERASE 19 U/L (12-78); ALBUMIN 3.7 g/dL (3.4-5.0); ALKALINE PHOSPHATASE 55 U/L (46-116); ANION GAP 6 mmol/L (8-16); ASPARTATE AMINOTRANSFERASE 19 U/L (15-37); BILIRUBIN,TOTAL 0.4 mg/dL (0.1-1.0); CALCIUM, TOTAL 8.7 mg/dL (8.8-10.5); CARBON DIOXIDE 29 mmol/L (22-29); CHLORIDE 103 mmol/L (98-107); CHOL/HDL RATIO 7.7 (4.2-7.3); CHOLESTEROL 253 mg/dL (131-200); CREATININE 1.21 mg/dL (0.60-1.30); FREE T4 (FREE THYROXINE) 0.54 ng/dL (0.76-1.46); GLOMERULAR FILTR. RATE CALC > 60 mL/min (>60); GLUCOSE,RANDOM 107 mg/dL (70-110); HDL CHOLESTEROL 33 mg/dL (40-60); POTASSIUM 4.4 mmol/L (3.5-5.1); SODIUM SERUM 138 mmol/L (136-145); THYROID STIMULATING HORMONE 1.85 uIU/mL (0.36-3.74); TOTAL PROTEIN, SERUM 6.9 g/dL (6.4-8.2); TRIGLYCERIDES 490 mg/dL (15-150); UREA NITROGEN, BLOOD 15 mg/dL (7-18)
[2019-05-31 16:12] VITALS: BP 117/61
[2019-05-31] MEDS ORDERED: DENTURE ADHESIVE 68 GM CREAM DT PRN (17:15)
[2019-05-31] MEDS: SIMVASTATIN 20 MG TABLET PO SCH (20:35)
[2019-05-31] MEDS: QUEtiapine FUMARATE 200 MG TABLET PO SCH (20:35)
[2019-06-01 00:25] VITALS: BP 119/75
[2019-06-01] MEDS: ESCITALOPRAM OXALATE 20 MG TABLET PO SCH (08:56)
[2019-06-01] MEDS: DOCUSATE SODIUM 100 MG CAPSULE PO SCH (08:56)
[2019-06-01] MEDS: OMEGA-3/DHA/EPA/FISH OIL 1,000 MG CAPSULE PO SCH (08:56)
[2019-06-01] MEDS: OMEPRAZOLE 20 MG CAPSULE PO SCH (08:56)
[2019-06-01] MEDS: NICOTINE 21 MG/24 HOUR PATCH TD SCH (09:02)
[2019-06-01 16:10] VITALS: BP 139/90
[2019-06-01] MEDS: QUEtiapine FUMARATE 200 MG TABLET PO SCH (20:30)
[2019-06-01] MEDS ORDERED: SIMVASTATIN 10 MG TABLET PO SCH (21:00)
[2019-06-02 00:13] VITALS: BP 118/62
[2019-06-02 08:25] VITALS: BP 118/75
[2019-06-02] MEDS: DOCUSATE SODIUM 100 MG CAPSULE PO SCH (09:43)
[2019-06-02] MEDS: OMEPRAZOLE 20 MG CAPSULE PO SCH (09:43)
[2019-06-02] MEDS: NICOTINE 21 MG/24 HOUR PATCH TD SCH (09:43)
[2019-06-02] MEDS: OMEGA-3/DHA/EPA/FISH OIL 1,000 MG CAPSULE PO SCH (09:43)
[2019-06-02] MEDS: ESCITALOPRAM OXALATE 20 MG TABLET PO SCH (09:44)
[2019-06-02] MEDS ORDERED: OMEP20 PO (10:24)
[2019-06-02] MEDS ORDERED: OMEG-135 PO (10:24)
== END 2019-06-02 12:00 | disposition home or self-care (01) | DRG 885 ==
LOC: B2S 16:46 → B2X 17:21
PROVIDERS: ADMIT Psychiatry & Neurology Psychiatry; ATTEND Psychiatry & Neurology Psychiatry
DX: F25.9 Schizoaffective disorder, unspecified (principal); G47.00 Insomnia, unspecified; I10 Essential (primary) hypertension; J44.9 Chronic obstructive pulmonary disease, unspecified; F17.200 Nicotine dependence, unspecified, uncomplicated; F12.90 Cannabis use, unspecified, uncomplicated; F41.9 Anxiety disorder, unspecified; E78.5 Hyperlipidemia, unspecified; Z56.0 Unemployment, unspecified
CPT/HCPCS: 83036; 84439; 84443